=== PATIENT | female | born 1965 | race Caucasian/White ===

== ENCOUNTER 2017-02-25 22:56 | Observation (INO) | payer OTHER ==
[2017-02-25] MEDS ORDERED: RX INFO: IV CONTRAST WAS GIVEN 1 EACH MISC MISCELLANE PRN (23:14)
[2017-02-25 23:20] LABS: Glucose,Whole Blood 119 mg/dL (75-99)
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
[2017-02-25 23:32] LABS: Basophils # (A) 0.1 k/uL (0-0.2); Basophils % (A) 1 %; CHCM 34.2; Eosinophils # (A) 0.1 k/uL (0-0.7); Eosinophils % (A) 1 %; HCT 39.9 % (34.0-46.0); HDW 2.99; HGB 13.8 gm/dL (11.4-16.0); Luc # (Auto) 0.18; Luc % (Auto) 2; Lymphocytes # (A) 1.9 k/uL (1.0-4.8); Lymphocytes % (A) 16 %; MCH 32.4 pg (25.0-35.0); MCHC 34.6 g/dL (31.0-37.0); MCV 93.8 fL (80.0-100.0); Mean Platelet Volume 8.1; Monocytes # (A) 0.5 k/uL (0-1.0); Monocytes % (A) 4 %; Neutrophils # (A) 8.9 k/uL (1.3-7.7); Neutrophils % (A) 77 %; RBC 4.26 m/uL (3.80-5.40); RDW 13.2 % (11.5-15.5); WBC 11.6 k/uL (3.8-10.6); WBC (Perox) 11.46
[2017-02-25 23:38] LABS: Partial Thromboplastin Time 28.3 sec (22.0-30.0); Prothrombin Time 10.3 sec (9.0-12.0)
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
--- NOTE | 2017-02-25 23:55 | XR ---
EXAM: XR Left Tibia and Fibula, 2 Views CLINICAL HISTORY: Pain TECHNIQUE: Frontal and lateral views of the left tibia and fibula. COMPARISON: No relevant prior studies available. FINDINGS: Bones/joints: Unremarkable. No acute fracture. No dislocation. Soft tissues: Unremarkable. No radiopaque foreign body. IMPRESSION: Normal left tibia and fibula x-rays.
--- NOTE | 2017-02-25 23:56 | XR ---
EXAM: XR Pelvis, 1 or 2 Views CLINICAL HISTORY: Trauma TECHNIQUE: Frontal view of the pelvis. COMPARISON: No relevant prior studies available. FINDINGS: Bones/joints: Unremarkable. No acute fracture. No dislocation. Soft tissues: Punctate calcifications within the left hemipelvis, likely phleboliths. IMPRESSION: No acute findings.
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
--- NOTE | 2017-02-26 00:12 | CT ---
EXAM: CT Chest With Intravenous Contrast CLINICAL HISTORY: Reason: trauma TECHNIQUE: Axial computed tomography images of the chest with intravenous contrast. CTDI is 12.00 mGy and DLP is 730.90 mGy-cm. This CT exam was performed using one or more of the following dose reduction techniques: automated exposure control, adjustment of the mA and/or kV according to patient size, and/or use of iterative reconstruction technique. COMPARISON: No relevant prior studies available. FINDINGS: Lungs: Bronchial wall thickening with prominence of the intralobular septa likely representing mild pulmonary edema versus an inflammatory or infectious process. Pleural space: Unremarkable. No pneumothorax. No significant effusion. Heart: Unremarkable. No cardiomegaly. No significant pericardial effusion. Bones/joints: Unremarkable. No acute fracture. No dislocation. Soft tissues: Unremarkable. Vasculature: Unremarkable. No thoracic aortic aneurysm. Lymph nodes: Unremarkable. IMPRESSION: Bronchial wall thickening with prominence of the intralobular septa likely representing mild pulmonary edema versus an inflammatory or infectious process. EXAM: CT Abdomen and Pelvis With Intravenous Contrast CLINICAL HISTORY: Reason: trauma TECHNIQUE: Axial computed tomography images of the abdomen and pelvis with intravenous contrast. CTDI is 12.00 mGy and DLP is 730.90 mGy-cm. This CT exam was performed using one or more of the following dose reduction techniques: automated exposure control, adjustment of the mA and/or kV according to patient size, and/or use of iterative reconstruction technique. COMPARISON: No relevant prior studies available. FINDINGS: Lower thorax: No acute findings. ABDOMEN: Liver: Unremarkable. Gallbladder and bile ducts: Unremarkable. Pancreas: Unremarkable. Spleen: Unremarkable. Adrenals: Unremarkable. Kidneys and ureters: Unremarkable. Stomach and bowel: Unremarkable. Appendix: No findings to suggest acute appendicitis. PELVIS: Bladder: Unremarkable. Reproductive: Unremarkable as visualized. ABDOMEN and PELVIS: Intraperitoneal space: Unremarkable. Bones/joints: No acute fracture. No dislocation. Soft tissues: Unremarkable. Vasculature: Vascular calcifications. Moderate narrowing of the takeoff of the celiac artery. Lymph nodes: Unremarkable. IMPRESSION: No acute findings.
[2017-02-26 00:41] LABS: ALT 32 U/L (9-52); AST 19 U/L (14-36); Alcohol <10 mg/dL; Alkaline Phosphatase 121 U/L (38-126); Amylase 47 U/L (30-110); Anion Gap 11 mmol/L; Blood Urea Nitrogen 7 mg/dL (7-17); Calcium 9.2 mg/dL (8.4-10.2); Carbon Dioxide 24 mmol/L (22-30); Chloride 101 mmol/L (98-107); Glucose 99 mg/dL (74-99); Non-African American GFR(MDRD) >60 (>60 ml/min/1.73 sqM); Potassium 3.8 mmol/L (3.5-5.1); Sodium 136 mmol/L (137-145); Total Bilirubin 0.3 mg/dL (0.2-1.3)
[2017-02-26 00:54] LABS: Creatine Kinase 56 U/L (30-135)
[2017-02-26 01:05] LABS: Creatine Kinase MB 0.8 ng/mL (0.0-2.4); Troponin I <0.012 ng/mL (0.000-0.034)
[2017-02-26] MEDS ORDERED: NALOXONE 0.4 MG/ML 1 ML VIAL IV PRN (01:05)
[2017-02-26] MEDS ORDERED: ONDANSETRON 4 MG/2 ML VIAL IVP PRN (01:05)
[2017-02-26 01:07] LABS: Appearance,Urine Clear (Clear)
[2017-02-26 01:08] LABS: Bilirubin,Urine Negative (Negative); Glucose,Urine (UA) Negative (Negative); Ketones,Urine Negative (Negative); Nitrite,Urine Negative (Negative); Protein,Urine Negative (Negative); Specific Gravity,Urine 1.015 (1.001-1.035); Urobilinogen,Urine <2.0 mg/dL (<2.0)
[2017-02-26 01:09] LABS: Leukocyte Esterase,Urine Negative (Negative); UA Billing (MACRO vs. MICRO) CHEM
[2017-02-26] MEDS: SODIUM CHLORIDE 0.9% 1,000 ML IV SCH ×2 (02:21→19:13)
[2017-02-26 07:37] VITALS: RESP 16
[2017-02-26] MEDS ORDERED: FAMOTIDINE 20 MG TAB PO SCH (09:00)
[2017-02-26] MEDS ORDERED: ENOXAPARIN 40 MG/0.4 ML SYRINGE SQ SCH (15:00)
[2017-02-26] MEDS ORDERED: VENLAFAXINE HCL ER 75 MG CAP PO SCH (15:00)
[2017-02-26 15:30] VITALS: BP 118/71; PULSE 82; TEMP 97.2
[2017-02-26] MEDS ORDERED: PREGABALIN 75 MG CAP PO SCH (16:00)
[2017-02-26] MEDS ORDERED: IPRATROPIUM 0.5 MG/2.5 ML NEBU INHALATION SCH (16:00)
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
[2017-02-26] MEDS: METHADONE 5 MG TAB PO SCH ×2 (19:12→19:13)
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
[2017-02-27] MEDS ORDERED: ENOXAPARIN 40 MG/0.4 ML SYRINGE SQ SCH (09:00)
[2017-02-27] MEDS ORDERED: ESCITALOPRAM 20 MG TAB PO SCH (09:00)
== END 2017-02-26 19:20 | disposition home or self-care (01) ==
LOC: EC 22:56 → 3OBS 02-26 01:06
PROVIDERS: ADMIT Hospitalist; ATTEND Hospitalist
DX: G92 Toxic encephalopathy (principal); J44.9 Chronic obstructive pulmonary disease, unspecified; F17.210 Nicotine dependence, cigarettes, uncomplicated; F51.04 Psychophysiologic insomnia; M17.0 Bilateral primary osteoarthritis of knee; M19.032 Primary osteoarthritis, left wrist; M19.042 Primary osteoarthritis, left hand; M19.041 Primary osteoarthritis, right hand; M19.91 Primary osteoarthritis, unspecified site; I10 Essential (primary) hypertension; F41.9 Anxiety disorder, unspecified; F19.10 Other psychoactive substance abuse, uncomplicated; Z79.899 Other long term (current) drug therapy; Z88.6 Allergy status to analgesic agent; Z82.49 Family history of ischemic heart disease and other diseases of the circulatory system; Z80.1 Family history of malignant neoplasm of trachea, bronchus and lung; V47.0XXA Car driver injured in collision with fixed or stationary object in nontraffic accident, initial encounter; Y92.411 Interstate highway as the place of occurrence of the external cause
CPT/HCPCS: 36415; 93005; 86900; 86901; 80053; 82150; 82550; 82553; 83690; 84484; 85025; 85610; 85730; 86850; 81003; 80306; 80320; 71010; 72170; 73590; 72125; 70450; 71260; 74177; 99291; G0378; Q9967

== ENCOUNTER 2017-03-28 17:41 | Inpatient (IN) | payer OTHER ==
[2017-03-28] MEDS ORDERED: SODIUM CHLORIDE 0.9% 500 ML IV STA (18:08)
[2017-03-28] MEDS ORDERED: THIAMINE 100 MG/ML 2 ML VIAL IVP STA (18:09)
--- NOTE | 2017-03-28 18:14 | ED ---
Neuro HPI - General Chief Complaint: Neuro Symptoms/Deficit Stated Complaint: alter mental status Time Seen by Provider: 03/28/17 18:00 Source: patient Mode of arrival: wheelchair Limitations: altered mental status - History of Present Illness Is the patient presenting with stroke symptoms?: No Initial Comments: 51-year-old female presents with deteriorating medical condition over the last 3 -4 days. Patient has a history of alcoholism with chronic pain on methadone and is been on alprazolam for years. She had a DUI, went to court on Thursday 4 days ago and was ordered to stop all of her pain medication Xanax and alcohol. She will go to penitent[facility] for year. She has been becoming more confused over the last 4 days. And now will not speak. Has not been eating. No nausea or vomiting. Has a history of chronic neuropathic pain in the right leg. - Related Data Home Medications: Home Medications Medication Instructions Recorded Confirmed Albuterol Sulfate [Ventolin HFA] 1 - 2 puff INHALATION RT-Q4H PRN 02/26/1703/28 Escitalopram [Lexapro] 20 mg PO DAILY 02/26/17 03/28/17 Ipratropium [place] [Atrovent Hfa] 2 puff INHALATION RT-QID 02/26/17 03/28/17 Methadone HCl 5 mg PO QID 02/26/17 03/28/17 Pregabalin [Lyrica] 150 mg PO TID 02/26/17 03/28/17 Venlafaxine HCl ER [Effexor XR] 75 mg PO DAILY 02/26/17 03/28/17 ALPRAZolam [Xanax] 2 mg PO TID PRN 03/28/17 03/28/17 Fenofibrate [Lofibra] 160 mg PO DAILY 03/28/17 03/28/17 Loratadine [Claritin] 10 mg PO DAILY 03/28/17 03/28/17 Temazepam [Restoril] 15 mg PO HS 03/28/17 03/28/17 Allergies/Adverse Reactions: Allergies Allergy/AdvReac Type Severity Reaction Status Date / Time aspirin Allergy Unknown Verified 03/28/17 18:28 Review of Systems ROS Statement: Those systems with pertinent positive or pertinent negative responses have been documented in the HPI. ROS Other: All systems not noted in ROS Statement are negative. Constitutional: Denies: fever, chills Eyes: Denies: eye discharge Respiratory: Denies: cough Cardiovascular: Denies: chest pain Gastrointestinal: Denies: abdominal pain, nausea, vomiting, diarrhea General Exam Limitations: altered mental status General appearance: alert, in no apparent distress Head exam: Present: atraumatic Eye exam: Present: PERRL, EOMI. Absent: scleral icterus ENT exam: Present: normal oropharynx, mucous membranes moist, TM's normal bilaterally Neck exam: Present: normal inspection Respiratory exam: Present: normal lung sounds bilaterally Cardiovascular Exam: Present: regular rate, normal heart sounds GI/Abdominal exam: Present: soft, normal bowel sounds. Absent: distended Neurological exam: Present: CN II-XII intact, other (Reflexes mildly hyper, noncommunicative can nod yes or no. Has trouble raising her arms. There does not her to be laterality). Absent: oriented X3, motor sensory deficit Psychiatric exam: Present: flat affect. Absent: agitated Skin exam: Present: warm, dry Stroke MDM - Lab Data Result diagrams: 03/28/17 18:18 03/28/17 18:18 Lab Results 03/28/17 03/28/17 03/28/17 Range/Units 18:18 18:18 18:18 WBC 12.5 H (3.8-10.6) k/uL RBC 4.74 (3.80-5.40) m/uL Hgb 14.6 (11.4-16.0) gm/dL Hct 42.0 (34.0-46.0) % MCV 88.5 D (80.0-100.0) fL MCH 30.7 (25.0-35.0) pg MCHC 34.7 (31.0-37.0) g/dL RDW 12.8 (11.5-15.5) % Plt Count 375 (150-450) k/uL Neutrophils % 75 % Lymphocytes % 16 % Monocytes % 5 % Eosinophils % 0 % Basophils % 0 % Neutrophils # 9.3 H (1.3-7.7) k/uL Lymphocytes # 2.0 (1.0-4.8) k/uL Monocytes # 0.7 (0-1.0) k/uL Eosinophils # 0.0 (0-0.7) k/uL Basophils # 0.0 (0-0.2) k/uL PT (9.0-12.0) sec INR (<1.2) APTT (22.0-30.0) sec Sodium 150 H (137-145) mmol/L Potassium 3.3 L (3.5-5.1) mmol/L Chloride 112 H (98-107) mmol/L Carbon Dioxide 21 L (22-30) mmol/L Anion Gap 17 mmol/L BUN 20 H (7-17) mg/dL Creatinine 0.64 (0.52-1.04) mg/dL Est GFR (MDRD) Af Amer >60 (>60 ml/min/1.73 sqM) Est GFR (MDRD) Non-Af >60 (>60 ml/min/1.73 sqM) Glucose 117 H (74-99) mg/dL Calcium 10.3 H (8.4-10.2) mg/dL Total Bilirubin 0.5 (0.2-1.3) mg/dL AST 18 (14-36) U/L ALT 26 (9-52) U/L Alkaline Phosphatase 111 (38-126) U/L Total Creatine Kinase 245 H (30-135) U/L CK-MB (CK-2) 0.3 (0.0-2.4) ng/mL CK-MB (CK-2) Rel Index 0.1 Troponin I 0.015 (0.000-0.034) ng/mL Total Protein 8.1 (6.3-8.2) g/dL Albumin 4.9 (3.5-5.0) g/dL Urine Color Urine Appearance (Clear) Urine pH (5.0-8.0) Ur Specific [place] (1.001-1.035) Urine Protein (Negative) Urine Glucose (UA) (Negative) Urine Ketones (Negative) Urine Blood (Negative) Urine Nitrite (Negative) Urine Bilirubin (Negative) Urine Urobilinogen (<2.0) mg/dL Ur Leukocyte Esterase (Negative) Urine WBC (0-5) /hpf Urine Mucus (None) /hpf Urine Opiates Screen (NotDetected) Ur Oxycodone Screen (NotDetected) Urine Methadone Screen (NotDetected) Ur Propoxyphene Screen (NotDetected) Ur Barbiturates Screen (NotDetected) U Tricyclic Antidepress (NotDetected) Ur Phencyclidine Scrn (NotDetected) Ur Amphetamines Screen (NotDetected) U Methamphetamines Scrn (NotDetected) U Benzodiazepines Scrn (NotDetected) Urine Cocaine Screen (NotDetected) U Marijuana (THC) Screen (NotDetected) 03/28/17 03/28/17 Range/Units 18:18 18:30 WBC (3.8-10.6) k/uL RBC (3.80-5.40) m/uL Hgb (11.4-16.0) gm/dL Hct (34.0-46.0) % MCV (80.0-100.0) fL MCH (25.0-35.0) pg MCHC (31.0-37.0) g/dL RDW (11.5-15.5) % Plt Count (150-450) k/uL Neutrophils % % Lymphocytes % % Monocytes % % Eosinophils % % Basophils % % Neutrophils # (1.3-7.7) k/uL Lymphocytes # (1.0-4.8) k/uL Monocytes # (0-1.0) k/uL Eosinophils # (0-0.7) k/uL Basophils # (0-0.2) k/uL PT 12.3 H (9.0-12.0) sec INR 1.2 H (<1.2) APTT 25.0 (22.0-30.0) sec Sodium (137-145) mmol/L Potassium (3.5-5.1) mmol/L Chloride (98-107) mmol/L Carbon Dioxide (22-30) mmol/L Anion Gap mmol/L BUN (7-17) mg/dL Creatinine (0.52-1.04) mg/dL Est GFR (MDRD) Af Amer (>60 ml/min/1.73 sqM) Est GFR (MDRD) Non-Af (>60 ml/min/1.73 sqM) Glucose (74-99) mg/dL Calcium (8.4-10.2) mg/dL Total Bilirubin (0.2-1.3) mg/dL AST (14-36) U/L ALT (9-52) U/L Alkaline Phosphatase (38-126) U/L Total Creatine Kinase (30-135) U/L CK-MB (CK-2) (0.0-2.4) ng/mL CK-MB (CK-2) Rel Index Troponin I (0.000-0.034) ng/mL Total Protein (6.3-8.2) g/dL Albumin (3.5-5.0) g/dL Urine Color Yellow Urine Appearance Clear (Clear) Urine pH 6.0 (5.0-8.0) Ur Specific [place] 1.024 (1.001-1.035) Urine Protein 1+ H (Negative) Urine Glucose (UA) Negative (Negative) Urine Ketones 1+ H (Negative) Urine Blood Negative (Negative) Urine Nitrite Negative (Negative) Urine Bilirubin 1+ H (Negative) Urine Urobilinogen 2.0 (<2.0) mg/dL Ur Leukocyte Esterase Negative (Negative) Urine WBC 1 (0-5) /hpf Urine Mucus Rare H (None) /hpf Urine Opiates Screen Not Detected (NotDetected) Ur Oxycodone Screen Not Detected (NotDetected) Urine Methadone Screen Detected H (NotDetected) Ur Propoxyphene Screen Not Detected (NotDetected) Ur Barbiturates Screen Not Detected (NotDetected) U Tricyclic Antidepress Not Detected (NotDetected) Ur Phencyclidine Scrn Not Detected (NotDetected) Ur Amphetamines Screen Not Detected (NotDetected) U Methamphetamines Scrn Not Detected (NotDetected) U Benzodiazepines Scrn Detected H (NotDetected) Urine Cocaine Screen Not Detected (NotDetected) U Marijuana (THC) Screen Detected H (NotDetected) - EKG Data -: EKG Interpreted by Me 03/28/17 18:24 EKG 03/28/2017 1813 ventricular rate 70 bpm, MO interval 112 ms, QRS duration 68 ms, QT interval 396 ms normal sinus rhythm with sinus arrhythmia and nonspecific ST abnormality Past Medical History Past Medical History: Unable to Obtain Additional Past Medical History / Comment(s): Bronchitis, UTI, arthritis multiple joints, back pain, current L breast wound with I&D and pt states recently reopened. History of Any Multi-Drug Resistant Organisms: Unobtainable Past Surgical History: Hysterectomy Additional Past Surgical History / Comment(s): L breast I&D Past Anesthesia/Blood Transfusion Reactions: No Reported Reaction, Motion Sickness Past Psychological History: Unable to Obtain Smoking Status: Current every day smoker Past Alcohol Use History: Daily Past Drug Use History: Prescription Drug Abuse - Past Family History Father Family Medical History: Congestive Heart Failure (CHF) Additional Family Medical History / Comment(s): Father of CHF at the age of 75 yrs. Mother Family Medical History: Cancer Additional Family Medical History / Comment(s): Mother of lung cancer at the age of 68yrs. She was a heavy smoker. Course Vital Signs 03/28/17 03/28/17 03/28/17 17:50 19:00 20:03 Temperature 99.3 F 98.5 F Pulse Rate 85 97 80 Respiratory 18 18 18 Rate Blood Pressure 146/80 163/90 169/88 O2 Sat by Pulse 94 L 97 98 Oximetry - Reevaluation(s) Reevaluation #1: 03/28/17 20:34 Spoke with him the on-call physician Dr. Wilkins patient will be admitted to regular medical floor mild hyponatremia delirium secondary to drug and alcohol withdrawal presently not shaky. She is now 4 days into with no sign of the shakiness or DTs. Disposition Clinical Impression: Delirium, Drug withdrawal, Hypernatremia Disposition: ADMITTED IP TO THIS HOSP Condition: Fair Referrals: Nonstaff,Physician [Primary Care Provider] - 1-2 days Time of Disposition: 20:35
[2017-03-28 18:55] LABS: Appearance,Urine Clear (Clear); Bilirubin,Urine 1+ (Negative); Glucose,Urine (UA) Negative (Negative); Ketones,Urine 1+ (Negative); Leukocyte Esterase,Urine Negative (Negative); Mucus,Urine Rare /hpf; Nitrite,Urine Negative (Negative); Particle Count 1706; Protein,Urine 1+ (Negative); Specific Gravity,Urine 1.024 (1.001-1.035); UA Billing (MACRO vs. MICRO) MICRO; WBC,Urine 1 /hpf (0-5)
--- NOTE | 2017-03-28 18:55 | CT ---
EXAMINATION TYPE: CT brain wo con DATE OF EXAM: 03/28/2017 HISTORY: Patient poor historian altered mental status. CT DLP: 1746.2 mGycm. Automated Exposure Control for Dose Reduction was Utilized. TECHNIQUE: CT scan of the head is performed without contrast. COMPARISON: CT brain February 25, 2017. FINDINGS: Repeat imaging due to patient motion is performed. There is no acute intracranial hemorrh age or midline shift identified. There is diffuse ventricular and sulcal prominence consistent with d iffuse age-related cerebral atrophy. There is low-attenuation in the periventricular white matter co nsistent with chronic small vessel ischemic change. The globes are intact and the visualized sinuses are clear. IMPRESSION: No acute intracranial hemorrhage or midline shift. There is mild to minimal diffuse age -related cerebral atrophy and chronic small vessel ischemic change redemonstrated without significant change from prior study seen.
[2017-03-28 18:56] LABS: Basophils % (A) 0 %; CH 31.2; CHCM 35.4; Eosinophils % (A) 0 %; HDW 2.95; HGB 14.6 gm/dL (11.4-16.0); Luc # (Auto) 0.45; Luc % (Auto) 4; Lymphocytes % (A) 16 %; MCH 30.7 pg (25.0-35.0); MCHC 34.7 g/dL (31.0-37.0); Mean Platelet Volume 7.3; Monocytes # (A) 0.7 k/uL (0-1.0); Monocytes % (A) 5 %; Neutrophils # (A) 9.3 k/uL (1.3-7.7); Neutrophils % (A) 75 %; RBC 4.74 m/uL (3.80-5.40); RDW 12.8 % (11.5-15.5); WBC 12.5 k/uL (3.8-10.6); WBC (Perox) 12.36
[2017-03-28 18:57] LABS: MCV 88.5 fL (80.0-100.0)
--- NOTE | 2017-03-28 18:57 | XR ---
EXAMINATION TYPE: XR chest 1V portable DATE OF EXAM: 03/28/2017 COMPARISON: Chest x-ray February 25, 2017 HISTORY: Altered mental status and weakness. TECHNIQUE: Single AP portable frontal supine view of the chest is obtained. FINDINGS: There is no focal air space opacity, pleural effusion, or pneumothorax seen. The cardiac silhouette size is stable and upper limits of normal. The osseous structures are intact. IMPRESSION: No acute process. No significant change from prior.
[2017-03-28 18:59] LABS: INR 1.2 (<1.2); Prothrombin Time 12.3 sec (9.0-12.0)
[2017-03-28 19:05] LABS: ALT 26 U/L (9-52); AST 18 U/L (14-36); Alkaline Phosphatase 111 U/L (38-126); Anion Gap 17 mmol/L; Blood Urea Nitrogen 20 mg/dL (7-17); Calcium 10.3 mg/dL (8.4-10.2); Carbon Dioxide 21 mmol/L (22-30); Chloride 112 mmol/L (98-107); Glucose 117 mg/dL (74-99); Non-African American GFR(MDRD) >60 (>60 ml/min/1.73 sqM); Potassium 3.3 mmol/L (3.5-5.1); Sodium 150 mmol/L (137-145); Total Bilirubin 0.5 mg/dL (0.2-1.3); Total Protein 8.1 g/dL (6.3-8.2)
[2017-03-28 19:37] LABS: Creatine Kinase MB 0.3 ng/mL (0.0-2.4); Troponin I 0.015 ng/mL (0.000-0.034)
[2017-03-28] MEDS ORDERED: NALOXONE 0.4 MG/ML 1 ML VIAL IV PRN (20:35)
[2017-03-28] MEDS: DEXTROSE 5%-0.45% NACL 1,000 ML IV SCH (21:21)
[2017-03-28] MEDS: POTASSIUM CHLORIDE 10 MEQ, LIDOCAINE 2% INJ 10 MG in SODIUM CHLORIDE 0.9% 100 ML IVPB SCH (22:24)
[2017-03-28] MEDS: ALBUTEROL NEBULIZED 2.5 MG/3 ML INHALATION SCH (23:39)
[2017-03-29] MEDS: POTASSIUM CHLORIDE 10 MEQ, LIDOCAINE 2% INJ 10 MG in SODIUM CHLORIDE 0.9% 100 ML IVPB SCH (00:47)
[2017-03-29] MEDS: ALBUTEROL NEBULIZED 2.5 MG/3 ML INHALATION SCH ×6 (03:16→22:40)
[2017-03-29] MEDS ORDERED: ACETAMINOPHEN IV (For NPO) 1,000 MG in EMPTY BAG 1 BAG IVPB STA ×2 (06:35→13:55)
[2017-03-29] MEDS: THIAMINE 100 MG/ML 2 ML VIAL IVP SCH (07:28)
[2017-03-29 07:54] LABS: Basophils % (A) 0 %; CH 30.8; CHCM 34.2; Eosinophils % (A) 0 %; HCT 38.5 % (34.0-46.0); HDW 2.86; HGB 13.6 gm/dL (11.4-16.0); Luc # (Auto) 0.37; Luc % (Auto) 4; Lymphocytes # (A) 1.6 k/uL (1.0-4.8); Lymphocytes % (A) 15 %; MCHC 35.4 g/dL (31.0-37.0); MCV 90.4 fL (80.0-100.0); Mean Platelet Volume 7.1; Monocytes # (A) 0.6 k/uL (0-1.0); Monocytes % (A) 5 %; Neutrophils % (A) 76 %; RBC 4.26 m/uL (3.80-5.40); RDW 12.7 % (11.5-15.5); WBC 10.5 k/uL (3.8-10.6); WBC (Perox) 11.24
[2017-03-29 08:06] LABS: Anion Gap 12 mmol/L; Blood Urea Nitrogen 16 mg/dL (7-17); Calcium 9.2 mg/dL (8.4-10.2); Carbon Dioxide 21 mmol/L (22-30); Chloride 117 mmol/L (98-107); Glucose 128 mg/dL (74-99); Non-African American GFR(MDRD) >60 (>60 ml/min/1.73 sqM); Sodium 150 mmol/L (137-145)
[2017-03-29] MEDS ORDERED: Potassium Replacement Protocol 1 EACH MISC MISCELLANE PRN ×2 (08:14→16:23)
[2017-03-29] MEDS ORDERED: PANTOPRAZOLE 40 MG/10 ML VIAL IV SCH (09:00)
[2017-03-29] MEDS: POTASSIUM CHLORIDE 10 MEQ, LIDOCAINE 2% INJ 10 MG in SODIUM CHLORIDE 0.9% 100 ML IV SCH ×5 (09:05→21:23)
[2017-03-29] MEDS ORDERED: IOHEXOL 350 MG/ML 25 ML BOTTLE (ORAL USE) PO PRN (11:02)
[2017-03-29] MEDS: DEXTROSE 5%-0.45% NACL 1,000 ML IV SCH ×2 (12:17→18:27)
--- NOTE | 2017-03-29 12:18 | CT ---
EXAMINATION TYPE: CT abdomen pelvis wo con DATE OF EXAM: 03/29/2017 COMPARISON: 02/25/2017 HISTORY: Fever CT DLP: 327.8 mGycm Automated exposure control for dose reduction was used. TECHNIQUE: Helical acquisition of images was performed from the lung bases through the pelvis. FINDINGS: There is infiltrate and atelectasis at the posterior lung bases. There are small pleural effusions. Liver shows no focal defect. Spleen appears normal. There is no evidence of pancreatic mass. There is no adrenal mass. Kidneys show no hydronephrosis. Ureters are not dilated. Kidneys have kenji l size and contour. There is no retroperitoneal adenopathy. Gallbladder appears normal. Bladder diste nds smoothly. There is no ascites. I see no intestinal wall thickening. There are no dilated loops. I see no bony destructive process. There is minimal stranding around the left kidney compared to the right. Exam is limited by lack of contrast. IMPRESSION: THERE ARE NEW BASILAR PULMONARY INFILTRATES AND ATELECTASIS AND MINIMAL PLEURAL FLUID COMPARED TO OLD EXAM. MINIMAL STRANDING AROUND THE LEFT KIDNEY APPEARS NEW COMPARED TO OLD EXAM AND COULD RELATE TO PYELONE PHRITIS. NO EVIDENCE OF INTRA-ABDOMINAL ABSCESS.
--- NOTE | 2017-03-29 14:26 | P.HPIM ---
History of Present Illness 51-year-old female presents with deteriorating medical condition over the last 3 -4 days. Patient has a history of alcoholism with chronic pain on methadone and is been on alprazolam for years. She had a DUI, went to court on Thursday 4 days ago and was ordered to stop all of her pain medication Xanax and alcohol. She will go to intermediate for year. She has been becoming more confused over the last 4 days. And now will not speak. Has not been eating. No nausea or vomiting. Has a history of chronic neuropathic pain in the right leg. I'm unable to get much of the history from the patient and family members are not available patient only answers with head nodding. Patient is found to have fever. Source of infection is not clear patient UA is not impressive. Patient' s chest x-ray did not show pneumonia because of which are pending a CT of the abdomen which showed some suspicious pyelonephritis and was standing on the left kidney. Patient was given Rocephin yesterday. Patient had fevers as today and patient did have fevers today as well. I consulted infectious disease. Patient will be started back on Rocephin. Patient is not packing mostly because of severe depression I believe. Patient was abusing her medications apparently at home. But patient is awake. When asked about abdominal pain she did say that she does have abdominal pain with head nodding, when asked about chest pain she nodded yes for that as well. She was hyponatremic due to dehydration for which patient is on D5 half-normal saline will repeat sodium again later in the day if it remains high patient will be switched to D5 water. Review of Systems Unable to obtain due to above-mentioned reasons Past Medical History Past Medical History: Unable to Obtain Additional Past Medical History / Comment(s): Bronchitis, UTI, arthritis multiple joints, back pain, current L breast wound with I&D and pt states recently reopened. History of Any Multi-Drug Resistant Organisms: Unobtainable Past Surgical History: Hysterectomy Additional Past Surgical History / Comment(s): L breast I&D Past Anesthesia/Blood Transfusion Reactions: No Reported Reaction, Motion Sickness Past Psychological History: Unable to Obtain Smoking Status: Current every day smoker Past Alcohol Use History: Daily Past Drug Use History: Prescription Drug Abuse - Past Family History Father Family Medical History: Congestive Heart Failure (CHF) Additional Family Medical History / Comment(s): Father of CHF at the age of 75 yrs. Mother Family Medical History: Cancer Additional Family Medical History / Comment(s): Mother of lung cancer at the age of 68yrs. She was a heavy smoker. Medications and Allergies Home Medications Medication Instructions Recorded Confirmed Type Albuterol Sulfate [Ventolin HFA] 1 - 2 puff INHALATION RT-Q4H PRN 02/26/1703/28 History Escitalopram [Lexapro] 20 mg PO DAILY 02/26/17 03/28/17 History Ipratropium [place] [Atrovent Hfa] 2 puff INHALATION RT-QID 02/26/17 03/28/17 History Methadone HCl 5 mg PO QID 02/26/17 03/28/17 History Pregabalin [Lyrica] 150 mg PO TID 02/26/17 03/28/17 History Venlafaxine HCl ER [Effexor XR] 75 mg PO DAILY 02/26/17 03/28/17 History ALPRAZolam [Xanax] 2 mg PO TID PRN 03/28/17 03/28/17 History Fenofibrate [Lofibra] 160 mg PO DAILY 03/28/17 03/28/17 History Loratadine [Claritin] 10 mg PO DAILY 03/28/17 03/28/17 History Temazepam [Restoril] 15 mg PO HS 03/28/17 03/28/17 History Allergies Allergy/AdvReac Type Severity Reaction Status Date / Time aspirin Allergy Unknown Verified 03/28/17 18:28 Physical Exam Vitals: Vital Signs Temp Pulse Pulse Resp BP BP Pulse Ox 03/29/17 13:53 101.6 F H 03/29/17 13:07 80 03/29/17 12:55 80 03/29/17 10:53 99.2 F 03/29/17 09:48 80 03/29/17 09:28 80 03/29/17 08:00 91 16 03/29/17 07:57 98.9 F 91 16 157/83 91 L 03/29/17 07:33 100.2 F H 03/29/17 06:50 103.4 F H 03/28/17 23:42 78 16 03/28/17 22:44 101.1 F H 78 16 136/89 93 L 03/28/17 21:18 98.7 F 80 18 173/86 97 03/28/17 20:03 98.5 F 80 18 169/88 98 03/28/17 19:00 97 18 163/90 97 03/28/17 17:50 99.3 F 85 18 146/80 94 L Intake and Output 03/28/17 03/29/17 03/29/17 22:59 06:59 14:59 Output Total 300 Balance -300 Output: Urine 300 Straight 300 Other: Voiding Method Bedpan Bedpan Weight 58.967 kg 58.967 kg PHYSICAL EXAMINATION: GENERAL: The patient is alert disorientation patient is mostly nonverbal MIPS to be depressed, not in any acute distress. Well developed, well nourished. HEENT: Pupils are round and equally reacting to light. EOMI. No scleral icterus. No conjunctival pallor. Normocephalic, atraumatic. No pharyngeal erythema. No thyromegaly. CARDIOVASCULAR: S1 and S2 present. No murmurs, rubs, or gallops. PULMONARY: Chest is clear to auscultation, no wheezing or crackles. ABDOMEN: Soft, nontender, nondistended, normoactive bowel sounds. No palpable organomegaly. MUSCULOSKELETAL: No joint swelling or deformity. EXTREMITIES: No cyanosis, clubbing, or pedal edema. NEUROLOGICAL: Gross neurological examination did not reveal any focal deficits. SKIN: No rashes. Results CBC & Chem 7: 03/29/17 07:35 03/29/17 13:54 Labs: Abnormal Lab Results - Last 24 Hours (Table) 03/28/17 03/28/17 03/28/17 Range/Units 18:18 18:18 18:18 WBC 12.5 H (3.8-10.6) k/uL Neutrophils # 9.3 H (1.3-7.7) k/uL PT (9.0-12.0) sec INR (<1.2) Sodium 150 H (137-145) mmol/L Potassium 3.3 L (3.5-5.1) mmol/L Chloride 112 H (98-107) mmol/L Carbon Dioxide 21 L (22-30) mmol/L BUN 20 H (7-17) mg/dL Glucose 117 H (74-99) mg/dL Calcium 10.3 H (8.4-10.2) mg/dL Total Creatine Kinase 245 H (30-135) U/L Urine Protein (Negative) Urine Ketones (Negative) Urine Bilirubin (Negative) Urine Mucus (None) /hpf Urine Methadone Screen (NotDetected) U Benzodiazepines Scrn (NotDetected) U Marijuana (THC) Screen (NotDetected) 03/28/17 03/28/17 03/29/17 Range/Units 18:18 18:30 07:35 WBC (3.8-10.6) k/uL Neutrophils # 8.0 H (1.3-7.7) k/uL PT 12.3 H (9.0-12.0) sec INR 1.2 H (<1.2) Sodium (137-145) mmol/L Potassium (3.5-5.1) mmol/L Chloride (98-107) mmol/L Carbon Dioxide (22-30) mmol/L BUN (7-17) mg/dL Glucose (74-99) mg/dL Calcium (8.4-10.2) mg/dL Total Creatine Kinase (30-135) U/L Urine Protein 1+ H (Negative) Urine Ketones 1+ H (Negative) Urine Bilirubin 1+ H (Negative) Urine Mucus Rare H (None) /hpf Urine Methadone Screen Detected H (NotDetected) U Benzodiazepines Scrn Detected H (NotDetected) U Marijuana (THC) Screen Detected H (NotDetected) 03/29/17 03/29/17 Range/Units 07:35 13:54 WBC (3.8-10.6) k/uL Neutrophils # (1.3-7.7) k/uL PT (9.0-12.0) sec INR (<1.2) Sodium 150 H (137-145) mmol/L Potassium 3.0 L* 3.3 L (3.5-5.1) mmol/L Chloride 117 H (98-107) mmol/L Carbon Dioxide 21 L (22-30) mmol/L BUN (7-17) mg/dL Glucose 128 H (74-99) mg/dL Calcium (8.4-10.2) mg/dL Total Creatine Kinase (30-135) U/L Urine Protein (Negative) Urine Ketones (Negative) Urine Bilirubin (Negative) Urine Mucus (None) /hpf Urine Methadone Screen (NotDetected) U Benzodiazepines Scrn (NotDetected) U Marijuana (THC) Screen (NotDetected) Assessment and Plan Plan: #1 sepsis: Source of sepsis is not clear may be related to pyelonephritis or urinary tract infection. Patient will be started back on ceftriaxone 2 g and infectious disease was consulted. #2 possible toxic encephalopathy from sepsis and overuse of medications. 3 hyponatremia: Hypovolemic hyponatremia expected to improve with the above- mentioned fluids. 4 polysubstance abuse in the past and present #5 severe depression: Psychiatric is be consulted as all her symptoms of presentation appears to be related to severe depression.
[2017-03-29 15:45] LABS: Hepatitis B Surface Ag Index 0.06
[2017-03-29 15:51] LABS: Hepatitis B Core IgM Index 0.05
[2017-03-29 16:02] LABS: Hepatitis C Virus IgG Ab Negative (Negative); Hepatitis C Virus IgG Index 0.02
[2017-03-29] MEDS: cefTRIAXone 2,000 MG in SODIUM CHLORIDE 0.9% 100 ML IVPB SCH (16:41)
[2017-03-29 18:10] VITALS: BMI 27.1
[2017-03-29 20:38] LABS: Appearance,Urine Clear (Clear); Bilirubin,Urine Negative (Negative); Glucose,Urine (UA) Negative (Negative); Ketones,Urine 1+ (Negative); Leukocyte Esterase,Urine Negative (Negative); Nitrite,Urine Negative (Negative); PH, Urine 5.5 (5.0-8.0); Protein,Urine Trace (Negative); Specific Gravity,Urine 1.021 (1.001-1.035); UA Billing (MACRO vs. MICRO) CHEM; Urobilinogen,Urine <2.0 mg/dL (<2.0)
[2017-03-30] MEDS: DEXTROSE 5%-0.45% NACL 1,000 ML IV SCH ×2 (05:28→07:52)
[2017-03-30 07:26] LABS: CH 30.9; CHCM 33.7; HCT 38.3 % (34.0-46.0); HDW 2.81; HGB 12.9 gm/dL (11.4-16.0); MCHC 33.6 g/dL (31.0-37.0); MCV 92.3 fL (80.0-100.0); Mean Platelet Volume 7.4; RBC 4.16 m/uL (3.80-5.40); WBC 12.3 k/uL (3.8-10.6)
[2017-03-30] MEDS: cefTRIAXone 2,000 MG in SODIUM CHLORIDE 0.9% 100 ML IVPB SCH (07:44)
[2017-03-30 07:49] LABS: ALT 29 U/L (9-52); AST 22 U/L (14-36); Alkaline Phosphatase 91 U/L (38-126); Anion Gap 12 mmol/L; Blood Urea Nitrogen 8 mg/dL (7-17); Calcium 9.2 mg/dL (8.4-10.2); Carbon Dioxide 22 mmol/L (22-30); Chloride 113 mmol/L (98-107); Glucose 136 mg/dL (74-99); Non-African American GFR(MDRD) >60 (>60 ml/min/1.73 sqM); Potassium 3.1 mmol/L (3.5-5.1); Sodium 147 mmol/L (137-145); Total Bilirubin 0.4 mg/dL (0.2-1.3); Total Protein 6.4 g/dL (6.3-8.2)
[2017-03-30] MEDS: THIAMINE 100 MG/ML 2 ML VIAL IVP SCH (07:51)
[2017-03-30] MEDS: PANTOPRAZOLE 40 MG TABLET PO SCH (07:52)
[2017-03-30] MEDS: POTASSIUM CHLORIDE 10 MEQ, LIDOCAINE 2% INJ 10 MG in SODIUM CHLORIDE 0.9% 100 ML IVPB SCH ×4 (09:02→22:56)
--- NOTE | 2017-03-30 10:14 | CONS ---
DATE OF SERVICE: 03/29/2017 REASON FOR CONSULTATION: Fever. HISTORY OF PRESENT ILLNESS: The patient is a 51-year-old female with past medical history significant for chronic back pain and anxiety. The patient has been on methadone and Xanax for a long time. Apparently the patient did have a DUI. The patient went to court on and the patient has been told to stop her pain medication and Xanax or she will go to long-term. For the last few days the patient seems to be more confused and the patient will not speak, has not been eating, no history of nausea, no vomiting. For these symptoms, the patient was brought into the ER by her boyfriend for further evaluation where the patient has been evaluated by the ER physician. Chest x-ray has been done which was reported as negative for any acute process. CT of the brain was negative for any bleed. Urine was slightly positive. CT of abdomen and pelvis did show possible perinephric stranding on the left side. She was started on Rocephin. I was asked to see the patient for further recommendations. The patient is awake; however, would not speak though the patient seems to be understanding the questions that were asked specifically to her and when categorically asked for any headache the patient nodded her head in the no or any nausea, no vomiting. However, the history remains to be limited as the patient will not answer any questions and would rather nod her head yes and no. REVIEW OF SYSTEMS: Could not be reliably obtained. Positive points as mentioned in HPI. PAST MEDICAL HISTORY: Significant for chronic back pain, arthritis, bronchitis , urinary tract infection. PAST SURGICAL HISTORY: Hysterectomy, ( ). SOCIAL HISTORY: Currently heavy smoker and drinker. ( ) FAMILY HISTORY: Father with history of congestive heart failure. Mother of lung cancer. ALLERGIES TO ASPIRIN. Medications include the patient is currently on Ventolin inhaler, Rocephin, Narcan, Protonix, vitamin B1. On examination, blood pressure is 154/79 with pulse of 93. Temperature 98.5. T -max 101.6. She is 93% on 2-L nasal cannula. General description is a middle aged female lying in bed in no distress with no tachypnea or accessory muscle of respiration use. HEENT: No pallor or scleral icterus. Oral mucous membrane is moist. NECK: Tracheal central. No thyromegaly. LUNGS: Unlabored breathing. Clear to auscultation. No wheeze or crackles. HEART: S1, S2 regular rate and rhythm. ABDOMEN: soft, no tenderness. No guarding or rigidity. EXTREMITIES: No edema feet. SKIN: No rash or mass palpable. NEUROLOGICAL: Patient is awake and alert. Orientation could not be determined as patient would not answer any questions. However, there were no signs of any neck rigidity or meningeal irritation. LABS: Hemoglobin is 13, white count 10.5. Admission white count was 12. BUN of 15. Creatinine 0.60. Urine was not significantly positive. Urine drug screen was positive for methadone, benzodiazepines, marijuana. DIAGNOSTIC IMPRESSION AND PLAN: Patient admitted to the hospital with possible sepsis where the patient did have a fever and elevated white count. Awaiting ( ); however, not a very clear focus of infection in this lady with possible drug overdose. Patient did have some perinephric stranding; however, the urine is not significantly positive. Chest x-ray report remains negative. Abdomen was soft on clinical examination in patient with no evidence of any cellulitis or joint swelling though the patient did have some mental status changes. However, the patient categorically denies any headache and no signs of meningeal irritation or neck rigidity making [employer] infection to be less likely. PLAN: 1. The patient kept on Rocephin 2 gram IV piggyback daily while awaiting for the culture to finalize. 2. If any further fever, recommend obtaining a CSF examination. 3. We will follow up on the clinical condition and culture to further adjust medication if needed. Thank you for this consultation. I will follow the patient along with you. STEVE
[2017-03-30] MEDS: ALBUTEROL NEBULIZED 2.5 MG/3 ML INHALATION PRN ×3 (11:31→20:41)
--- NOTE | 2017-03-30 11:45 | P.PN ---
Subjective 51-year-old female is admitted for fever, sepsis possible source being urinary tract infection. Patient was mostly nonverbal S today patient is starting today patient almost alert oriented times close to 3. Patient has a history of multiple drug use and there was a concern that she may be using those drugs and patient is quite depressed and the psychiatric was consulted. today denied any abdominal pain but does have some cramping sensation in the abdomen. Denied any chest pain today. REVIEW OF SYSTEMS: CARDIOVASCULAR: No chest pain, no orthopnea, no PND, no palpitations. PULMONARY: Denied any shortness of breath. No cough or hemoptysis. GASTROINTESTINAL: No diarrhea, nausea or vomiting. No abdominal pain. Normoactive bowel sounds. NEUROLOGIC: No headaches, no weakness, no numbness. Objective - Vital Signs Vital signs: Vital Signs Temp 98.7 F 03/30/17 07:00 Pulse 80 03/30/17 11:31 Resp 16 03/30/17 08:00 BP 153/85 03/30/17 07:00 Pulse Ox 97 03/30/17 11:31 Intake & Output 03/29/17 03/30/17 03/30/17 18:59 06:59 18:59 Intake Total 0 Balance 0 Weight 58.967 kg Intake: Oral 0 Other: Voiding Method Bedpan Bedpan Bedpan # Voids 3 1 1 # Bowel Movements 1 - Exam PHYSICAL EXAMINATION: GENERAL: The patient is alert and oriented x3, not in any acute distress. Well developed, well nourished. HEENT: Pupils are round and equally reacting to light. EOMI. No scleral icterus. No conjunctival pallor. Normocephalic, atraumatic. No pharyngeal erythema. No thyromegaly. CARDIOVASCULAR: S1 and S2 present. No murmurs, rubs, or gallops. PULMONARY: Chest is clear to auscultation, no wheezing or crackles. ABDOMEN: Soft, nontender, nondistended, normoactive bowel sounds. No palpable organomegaly. MUSCULOSKELETAL: No joint swelling or deformity. EXTREMITIES: No cyanosis, clubbing, or pedal edema. NEUROLOGICAL: Gross neurological examination did not reveal any focal deficits. SKIN: No rashes. - Labs CBC & Chem 7: 03/30/17 07:04 03/30/17 07:04 Labs: Abnormal Lab Results - Last 24 Hours (Table) 07/03/29/17 03/30/17 Range/Units 13:54 16:30 07:04 WBC 12.3 H (3.8-10.6) k/uL Sodium (137-145) mmol/L Potassium 3.3 L (3.5-5.1) mmol/L Chloride (98-107) mmol/L Creatinine (0.52-1.04) mg/dL Glucose (74-99) mg/dL Urine Protein Trace H (Negative) Urine Ketones 1+ H (Negative) 03/30/17 Range/Units 07:04 WBC (3.8-10.6) k/uL Sodium 147 H (137-145) mmol/L Potassium 3.1 L (3.5-5.1) mmol/L Chloride 113 H (98-107) mmol/L Creatinine 0.50 L (0.52-1.04) mg/dL Glucose 136 H (74-99) mg/dL Urine Protein (Negative) Urine Ketones (Negative) Microbiology - Last 24 Hours (Table) 03/29/17 16:30 Urine Culture - Preliminary Urine,Voided Assessment and Plan Plan: #1 sepsis: Source of sepsis is not clear may be related to pyelonephritis or urinary tract infection. Patient will be started back on ceftriaxone 2 g and patient did have improvement since yesterday. #2 possible toxic encephalopathy from sepsis and overuse of medications. Had significant improvement compared to yesterday 3 hyponatremia: Hypovolemic hyponatremia . Improved with half normal saline 4 polysubstance abuse in the past and present #5 severe depression: Psychiatric is be consulted as all her symptoms of presentation appears to be related to severe depression.
--- NOTE | 2017-03-30 16:31 | P.CN ---
Psychiatric Consult - . Consult date: 03/30/17 Consult:: 03/30/17 15:53 Identification and Reason for Consult: Patient is a 51-year-old female who was consulted for altered mental status. Patient's chart was reviewed and she was seen in her room, her partner was present who is the primary historian. History of Present Illness: Patient did not answer any of my questions and would not nod yes or no to respond to questions. Her partner was present who provided information. He states that she went to court on Thursday prior to admission for a DUI charge he was not present with her and so is not sure of the outcome. He stated she told him that the veneer jointer operator ordered her to stop all medication for 2 weeks or else she would go to halfway for 1 year. He reports that she stopped all of her medications on Thursday. He is uncertain of exactly all of the medications that she was on but states that he knows she was taking methadone for pain, Lyrica for pain, Bentyl for stomach problems and states that she has been using Xanax in unknown dosage 3 times a day and he reports that this might have recently been increased. He states that she has been taking Xanax for quite some time for stomach problems which he described as not eating and having diarrhea frequently after meals. She was also taking Restoril for sleep and he is unaware if she was prescribed and/or taking Lexapro. He reported that Thursday night she appeared as usual and on spoke with her house painting instructor and he reports had one beer. Reports the patient has been drinking heavily for over 20 years he states that a minimum a 12 pack of beer a day. He states by Thursday she was sitting in a chair all day, wasn't talking nor was she eating or drinking and only told him that she was "okay". He reports that Thursday she was in the same chair and when he returned from work in the evening she still has not moved from the chair nor eaten or drank anything and so he brought her to the hospital. She stated that she did not want to come to the hospital and he had to assist her into the car. Patient would look at me when I addressed questions to her but she would not nod her head yes or no respond verbally to any of the questions. Past Psychiatric History: Per her partner he is unaware of any prior psychiatric inpatient treatment, prior psychiatric outpatient treatment or rehab treatment. He reported her medications is being Restoril to assist with sleep, Xanax for stomach problems and he was unaware if she was taking Lexapro or not and felt that these were all being prescribed by her primary care physician. Past Medical/Surgical History: Per her partner she has a crushed nerve in her right ankle, he is unaware of any other medical problems or surgeries. He states she has had difficulty eating for many years. Current Medications: Per her partner he thought she was taking Lyrica, methadone , Bentyl, Xanax, Restoril and is uncertain if she was taking Lexapro he was unaware of any other medications. Family History: Not known Social History: Patient has lives with her current boyfriend for 2 years although they have known each other for over 20 years. He states that she lives on money from her father's estate and is not working due to her ankle injury. She has 2 children who are adults. Substance Use History: Per her partner she drinks 12 or more beers a day and has for at least the last 20 years, he is unaware of any other substance use Legal History: Patient was in court on Thursday for a DUI charge per her partner he is unaware of the outcome. Mental Status:Appearance/Attitude: Patient was lying in bed in no apparent distress and when addressed would make eye contact with me but would not respond verbally to any questions nor which she shake her head yes or no to questions Behavior: Patient was lying quietly in her bed there is no obvious psychomotor agitation, patient was not picking at the air and did not appear to be responding to any internal stimuli. Speech/Language: Patient would not respond verbally to any questions or nod yes or no to questions Thought Process: Unable to assess Thought Content: Unable to assess Suicidal/Homicidal Ideation: Unable to assess Sensorium/Cognition: Patient was alert but nonverbal with me, her partner reported that she said "I love you" to him when he left today and the nurse reported that she was able to respond to her name and knew where she was earlier this morning. Mood/Affect: Unable to assess the patient's mood her affect was blunted Insight/Judgement: Unable to assess Assessment: Patient was admitted for altered mental status which apparently began on Thursday prior to admission after per her partner she discontinued her Restoril, Xanax, methadone, Lyrica and possibly other medications which he states she reported was at the urging of the veneer jointer operator when she was in court on Thursday for a DUI charge. Since Thursday prior to admission she was sitting in a chair, not talking and was not eating or drinking. Due to her not eating, drinking or moving out of the chair or responding to him verbally he brought her to the emergency room. Patient's partner is the only source of information at this time and he reports she has a long history of alcohol use for at least 20 years, has been on Xanax for most of her life for GI problems. Patient also had a elevated temp and white count on admission, her sodium was elevated, her potassium was decreased she had ketones present in her urine. Her hepatitis screen was negative. Patient is not exhibiting any evidence of withdrawal from either benzodiazepines or alcohol at this time, patient had evidence of delirium on admission and continues to be nonverbal but at times responding to questions. Diagnosis: Delirium, due to multiple etiologies, sepsis, alcohol/benzodiazipine withdrawal, Alcohol use disorder, benzodiazepine use disorder Plan: At this time patient remains mostly nonverbal, she was not able to respond yes or no to questions and is difficult to assess whether she understood them or not, she was not cooperative with the swallow test and so remains nothing by mouth. At this time patient is not agitated and so will not begin any antipsychotic medication but will reevaluate patient tomorrow to see if her delirium continues to improve with treatment of her sepsis. As per the nurse, patient did respond to her name and was aware of her location however she remains mostly nonverbal. Would not restart any benzodiazepines due to the patient's alcohol history and long use of Xanax with per her boyfriend increasing amounts being prescribed. We'll reevaluate patient tomorrow to assess need for any medication. 03/30/17 15:54 03/30/17 16:22 03/30/17 16:27 03/30/17 16:31
[2017-03-30] MEDS ORDERED: HALOPERIDOL LACTATE 5 MG/ML 1 ML VIAL IM PRN (21:25)
[2017-03-30] MEDS ORDERED: OLANZapine ODT 5 MG TAB PO ONE (21:37)
[2017-03-31] MEDS: POTASSIUM CHLORIDE 10 MEQ, LIDOCAINE 2% INJ 10 MG in SODIUM CHLORIDE 0.9% 100 ML IVPB SCH ×6 (04:49→23:53)
--- NOTE | 2017-03-31 05:56 | PN ---
DATE OF SERVICE: 03/30/2017 Reason for followup is possible pyelonephritis. INTERVAL HISTORY: The patient overall feels better and has improved. Afebrile this morning. Apparently the patient is more awake and has been talking, but did not answer any of my questions. No nausea or vomiting has been noticed or any diarrhea. On examination, blood pressure is 177/95 with a pulse of 89, temperature 99. She is 97% on 2 L nasal cannula. General description is a middle age female lying in bed in no distress. RESPIRATORY SYSTEM: Unlabored breathing. Coarse breath sounds ( ). HEART: S1 and S2, regular rate and rhythm. ABDOMEN: Soft. No tenderness. LABS: Hemoglobin is 12.9, white count 12.3 with a BUN of 8 and creatinine 0.50. Culture are currently pending. Blood cultures so far negative. DIAGNOSTIC IMPRESSION AND PLAN: The patient admitted to the hospital with mental status changes and a fever with a concern for possible pyelonephritis seen on the CT. UA has not been significantly positive and no ( ) focus of infection. Fever responded to Rocephin and that will be continued. Await psychiatric evaluation. ( ) low for CLERICAL ADMINISTRATOR infection. Plan of care was discussed with the attending physician. STEVE
[2017-03-31] MEDS: ALBUTEROL NEBULIZED 2.5 MG/3 ML INHALATION PRN ×3 (07:31→20:41)
[2017-03-31] MEDS: DEXTROSE 5%-0.45% NACL 1,000 ML IV SCH ×3 (07:35→22:45)
[2017-03-31 08:09] LABS: CH 31.1; CHCM 34.2; HCT 40.9 % (34.0-46.0); HDW 2.83; HGB 13.6 gm/dL (11.4-16.0); MCH 30.3 pg (25.0-35.0); MCHC 33.2 g/dL (31.0-37.0); MCV 91.4 fL (80.0-100.0); Mean Platelet Volume 7.5; RBC 4.47 m/uL (3.80-5.40); RDW 12.9 % (11.5-15.5); WBC 15.3 k/uL (3.8-10.6)
[2017-03-31 08:31] LABS: Anion Gap 11 mmol/L; Blood Urea Nitrogen 4 mg/dL (7-17); Calcium 9.4 mg/dL (8.4-10.2); Carbon Dioxide 24 mmol/L (22-30); Chloride 110 mmol/L (98-107); Glucose 118 mg/dL (74-99); Non-African American GFR(MDRD) >60 (>60 ml/min/1.73 sqM); Potassium 3.1 mmol/L (3.5-5.1); Sodium 145 mmol/L (137-145)
[2017-03-31] MEDS: THIAMINE 100 MG/ML 2 ML VIAL IVP SCH (09:10)
[2017-03-31] MEDS: PANTOPRAZOLE 40 MG TABLET PO SCH (09:10)
[2017-03-31] MEDS: cefTRIAXone 2,000 MG in SODIUM CHLORIDE 0.9% 100 ML IVPB SCH (09:11)
[2017-03-31] MEDS ORDERED: Magnesium Replacement Protocol 1 EACH MISC MISCELLANE PRN (11:30)
--- NOTE | 2017-03-31 13:01 | PN ---
DATE OF SERVICE: 03/31/2017 Reason for followup is right-sided pyelonephritis. INTERVAL HISTORY: The patient is afebrile. She is awake and alert. She is up in the bed. The patient denies significant chest pain or shortness of breath. Very minimal cough. No nausea, vomiting or any diarrhea. On examination, blood pressure is 144/92 with a pulse of 78, temperature 97.1. She is 99% on room air. General description is an middle-aged female up in the bed in no distress. RESPIRATORY SYSTEM: Unlabored breathing, clear to auscultation with crackles. HEART: S1, S2 regular rate and rhythm. ABDOMEN: Soft, no tenderness. LABS: The white count is slightly elevated at 15.3 with a BUN of 4, creatinine 0.54. Blood and the urine culture are so far negative. DIAGNOSTIC IMPRESSION AND PLAN: Patient admitted to the hospital with mental status changes and a fever with evidence of pyelonephritis on the CT. The urine has been significantly positive. Blood culture has been negative, no other clinical source of infection. Lungs are clear to auscultation. No evidence of any cellulitis and she responded to Rocephin. Will switch to p.o. Ceftin following 500 mg b.i.d. for another 10 days to finish a course of therapy with close followup. Continue supportive care. MTDD
--- NOTE | 2017-03-31 13:42 | P.PN ---
Progress Note - Text Interval History: Patient is a 51-year-old female who was seen yesterday in consultation due to altered mental status. At that time patient was nonverbal and was not eating. Last evening I was contacted due to the patient becoming agitated and she was given Zyprexa Zydis 5 mg and per nursing she did not sleep during the evening. Patient was seen today and she was verbal telling me that she was more confused yesterday and her thinking is clear. She reports that she did not understand my questions yesterday but does today. She stated that she had gone to court for her first DUI last week and was told by the hardware installer to stop drinking and using Xanax which she states she did when she returned home. She reports that she was using 1 mg of Xanax 3 times a day and has been on this for at least 10 years, she was also drinking a 12 pack of beer a day. She states that she stopped the alcohol and the Xanax, becoming more confused, was not eating and was sitting in a chair until her boyfriend brought her to the emergency room. She states that she is less confused today and his understanding of my questions but is continuing to feel slightly nauseated and has not eaten much for breakfast or lunch. Patient states that she is living with her boyfriend she is not sure of how long , she states she was and and think she was for roughly 10 years and has 2 children a son and daughter, she is unable to tell me their ages. Patient continues to have difficulty recalling things and remains a poor historian. Patient states that she's been on Xanax to help her sleep as well as improve her eating. Mental Status: Appearance/Attitude: Patient was alert and sitting in her hospital bed and was cooperative with the interview. Behavior: Patient was sitting quietly in her bed, she was not agitated but appeared slightly psychomotor retarded. Speech/Language: Patient's speech was of normal volume and rhythm, she only responded to my questions Thought Process: Patient responded to my questions with brief answers, she was coherent. Thought Content: Patient denied any auditory or visual hallucinations no delusions were elicited. Suicidal/Homicidal Ideation: She denied any current suicidal or homicidal ideation. Sensorium/Cognition: Patient was alert, oriented to person, oriented to place while looking at the written in the hospital, she was oriented to date by looking at the date on the board in her room and was able to state the month from a numerical number of the month. She reports problems with her memory and she has a difficult time telling me how long she was , the ages of her children and states that she has had difficulty with her memory in the past but cannot elaborate on this. Mood/Affect: Patient reported her mood was okay her affect remained blunted Insight/Judgement: Patient's insight and judgment are limited Assessment: Patient appears to have a delirium secondary to her discontinuation of alcohol and Xanax, she was unable to describe and shows no evidence of any acute withdrawal symptoms and she reports her last use of alcohol and Xanax was at least one week ago. She is more alert today and his verbal and states that she is less confused however continues to have difficulty recalling past events , and in understanding some of my questions. She has no evidence of any psychotic process, denies being depressed, and states she is understanding my questions today. Patient received Zyprexa Zydis 5 mg last evening with limited effect this patient apparently did not sleep much during the evening. Patient continues to not eat stating that she still feels somewhat nauseated but better than she did on admission. Plan: Patient does not require inpatient psychiatric care as her diagnosis is delirium secondary to alcohol and benzodiazepine withdrawal. Patient will be given Risperdal M-Tab 0.25 mg now and she was agreeable to this medication. I spoke with the nurse states that the treating team is going to discharge the patient today and I recommend continuing her on Risperdal M tab 0.25 mg at bedtime for 3 days to treat her delirium. I also recommend that she be given referrals for outpatient substance abuse treatment. I also recommend that the patient not be restarted on any benzodiazepines at discharge. Patient should be evaluated by her primary care doctor 5 days after discharge to see if her delirium has resolved.
[2017-03-31] MEDS ORDERED: risperiDONE 0.25 MG TAB PO STA (13:44)
[2017-03-31] MEDS: POTASSIUM CHLORIDE ER 20 MEQ TAB.ER PO SCH (17:04)
--- NOTE | 2017-03-31 17:33 | P.DS ---
Providers Date of admission: 03/28/17 20:35 Expected date of discharge: 03/31/17 Attending physician: Lavern Aviles Consults: 03/29/17 12:47 Consult Physician Routine Consulting Provider: Ewa Iglesias Consult Reason/Comments: AMS Do you want consulting provider notified?: Yes 03/29/17 13:36 Consult Physician Routine Consulting Provider: Luci Valles Consult Reason/Comments: high temps Do you want consulting provider notified?: Already Contacted Primary care physician: Physician Nonstaff Dr. Mccullough Hospital Course: Final Diagnoses: #1 sepsis: Source of sepsis is not clear may be related to pyelonephritis or urinary tract infection. #2 possible toxic encephalopathy from sepsis and overuse of medications. 3 hyponatremia: Hypovolemic hyponatremia . 4 polysubstance abuse in the past and present #5 severe depression 51-year-old female is admitted for fever, sepsis possible source being urinary tract infection, in a patient with history of polysubstance abuse. Evaluated by psychiatry, medication regimen adjusted. Evaluated by and received antibiotics as per infectious disease. Significant clinical improvement. Evaluated by physical therapy and subacute rehab recommended at discharge. Patient will need polysubstance abuse rehab., Once she completes subacute rehab. Patient has been cleared by all consults for discharge. Patient is being discharged to a subacute rehab in a stable condition with guarded prognosis. The impression and plan of care has been dictated as directed as a scribe. : I performed a H&P examination of this patient and discussed the same with the dictator. I agree with the dictator's note. Any additional findings/opinions/ etc. will be noted. Patient Condition at Discharge: Fair Plan - Discharge Summary New Discharge Prescriptions: New Cefuroxime Axetil [Ceftin] 500 mg PO BID #20 tab Pantoprazole [Protonix] 40 mg PO DAILY tab Thiamine [Vitamin B-1] 100 mg PO DAILY #1 tablet Folic Acid 1 mg PO DAILY #30 tablet Multivitamins, Thera [Multivitamin (formulary)] 1 tab PO DAILY #1 tablet risperiDONE [RisperDAL] 0.25 mg PO HS tab Continue Pregabalin [Lyrica] 150 mg PO TID Methadone HCl 5 mg PO QID Ipratropium [place] [Atrovent Hfa] 2 puff INHALATION RT-QID Albuterol Sulfate [Ventolin HFA] 1 - 2 puff INHALATION RT-Q4H PRN PRN Reason: Shortness Of Breath Loratadine [Claritin] 10 mg PO DAILY Fenofibrate [Lofibra] 160 mg PO DAILY Discontinued Venlafaxine HCl ER [Effexor XR] 75 mg PO DAILY Temazepam [Restoril] 15 mg PO HS ALPRAZolam [Xanax] 2 mg PO TID PRN PRN Reason: Anxiety Discharge Medication List Albuterol Sulfate [Ventolin HFA] 1 - 2 puff INHALATION RT-Q4H PRN 02/26/17 [ History] Ipratropium [place] [Atrovent Hfa] 2 puff INHALATION RT-QID 02/26/17 [History] Methadone HCl 5 mg PO QID 02/26/17 [History] Pregabalin [Lyrica] 150 mg PO TID 02/26/17 [History] Fenofibrate [Lofibra] 160 mg PO DAILY 03/28/17 [History] Loratadine [Claritin] 10 mg PO DAILY 03/28/17 [History] Cefuroxime Axetil [Ceftin] 500 mg PO BID #20 tab 03/31/17 [Rx] Folic Acid 1 mg PO DAILY #30 tablet 03/31/17 [Rx] Multivitamins, Thera [Multivitamin (formulary)] 1 tab PO DAILY #1 tablet [Rx] Pantoprazole [Protonix] 40 mg PO DAILY tab 03/31/17 [Rx] Thiamine [Vitamin B-1] 100 mg PO DAILY #1 tablet 03/31/17 [Rx] risperiDONE [RisperDAL] 0.25 mg PO HS tab 03/31/17 [Rx] Follow up Appointment(s)/Referral(s): Madiha Mccullough MD [REFERRING] - 3 Days (after [place] from [facility] [place] Ewa Iglesias MD [Medical Doctor] - 03/31/17 Activity/Diet/Wound Care/Special Instructions: Lexapro on hold until delirium resolves as per psychiatry, Effexor as per psychiatry cbc,bmp in am Once subacute rehab completed, patient will need referrals for outpatient substance abuse treatment. Discharge Disposition: TRANSFER TO SNF/ECF
[2017-04-01] MEDS: POTASSIUM CHLORIDE 10 MEQ, LIDOCAINE 2% INJ 10 MG in SODIUM CHLORIDE 0.9% 100 ML IVPB SCH ×2 (04:58→06:00)
[2017-04-01] MEDS: DEXTROSE 5%-0.45% NACL 1,000 ML IV SCH ×2 (07:40→15:12)
[2017-04-01] MEDS: cefTRIAXone 2,000 MG in SODIUM CHLORIDE 0.9% 100 ML IVPB SCH (07:44)
[2017-04-01] MEDS: THIAMINE 100 MG/ML 2 ML VIAL IVP SCH (07:45)
[2017-04-01] MEDS: PANTOPRAZOLE 40 MG TABLET PO SCH (07:45)
[2017-04-01] MEDS ORDERED: Potassium Replacement Protocol 1 EACH MISC MISCELLANE PRN (13:45)
[2017-04-01] MEDS: POTASSIUM CHLORIDE ORAL LIQUID 40 MEQ/30 ML CUP PO SCH ×4 (14:20→23:12)
--- NOTE | 2017-04-01 14:43 | P.PN ---
Progress Note - Text Interval History: This is follow-up to a consultation and a 51-year-old female who was admitted due to altered mental status. Patient was begun on Risperdal 0.25 mg daily at bedtime and received 2 doses yesterday, one a stat dose and one scheduled. Patient was seen today she was sitting up in bed but reported that she has not been eating well due to some nausea. Patient states that she did sleep better last evening. She reports she is not as confused as she was on admission or yesterday. Patient orients herself by looking at the board in the hospital room, she was able to state the date as 04/01/2017. Patient was more able to focus while I spoke with her and she appeared to be able to follow our conversation. Spoke with her nursing staff report that patient did sleep last evening, there' ve been no behavioral problems but she does continue at times to respond incorrectly to questions, such as when asked what type of juice she would like to drink the patient responded with something completely irrelevant. Mental Status: Appearance/Attitude: Patient was sitting in bed, in no apparent distress and she was cooperative and made good eye contact. Behavior: Patient did not exhibit any psychomotor retardation or agitation. Speech/Language: Her speech was not spontaneous, she only responded to my questions and was not able to elaborate further than brief sentences. Her speech is of normal volume and rhythm. Thought Process: Patient responded to some questions appropriately and relevantly, to some of the nurses questions however she is not responding relevantly. Patient responded to my questions brief sentences that were coherent and relevant. Thought Content: Patient denied any auditory or visual hallucinations and no delusions or paranoid ideation were elicited. Patient stated she was in the hospital due to her use of alcohol and drugs. She reports that she slept better last evening but continues to report poor appetite with nausea when she eats. Suicidal/Homicidal Ideation: She denied any current suicidal or homicidal ideation. Sensorium/Cognition: Patient was alert and oriented to person she was able to orient herself to the date by looking at the board and was able to state the month was March from 7 on the board for the month. Patient is aware she is in a hospital. Patient continues to have difficulty recalling historical information , was unable to tell me the ages of her children. Mood/Affect: Patient's mood was euthymic and her affect was appropriate. Insight/Judgement: Patient's insight and judgment are limited. Assessment: Patient has not exhibited any behavioral disturbances and is sleeping better at night however her appetite remains poor, she states due to her nausea. Patient continues to respond to some questions in an irrelevant but coherent fashion. Her memory remains poor for both remote and recent events. Patient has been cooperative with staff on the unit. Plan: At this time would continue the Risperdal 0.25 mg at bedtime and would continue this at discharge until patient's mental status has returned to baseline. It is unclear to me if the patient's cognitive difficulties are all due to her delirium. Plan is for patient to be transferred to an extended care facility close to her son.
--- NOTE | 2017-04-01 15:11 | PN ---
DATE OF SERVICE: 04/01/2017 Reason for follow up is possible pyelonephritis. INTERVAL HISTORY: The patient is afebrile. She is breathing comfortably. Patient denies significant chest pain, shortness of breath, no cough. No abdominal pain, no nausea, vomiting or any diarrhea. On examination, blood pressure is 180/90 with a pulse of 91. Temperature 98. She is 96% on room air. General description is a middle-aged female up in the bed in no distress. RESPIRATORY SYSTEM: Unlabored breathing, clear to auscultation anteriorly. HEART: S1, S2, regular rate and rhythm. ABDOMEN: Soft, no tenderness. LABS: No new lab has been obtained today, considered to be negative. DIAGNOSTIC IMPRESSION AND PLAN: Patient admitted to the hospital with a fever and mental status changes. Consult for possible urinary tract infection with a CT abdomen showing evidence of pyelonephritis. UA was negative. ( ) responded to the Rocephin. Plan to finish therapy with p.o. Ceftin 500 mg twice a day for another 10 days. Continue with supportive care. MTDD
[2017-04-01] MEDS ORDERED: POTASSIUM CHLORIDE ORAL LIQUID 40 MEQ/30 ML CUP PO ONE (17:57)
--- NOTE | 2017-04-01 18:44 | P.PN ---
Subjective Date of service 03/31/2017. Progress note being dictated for Dr. Aviles Interval history: This is a 51-year-old female is admitted for fever, sepsis possible source being urinary tract infection, in a patient with history of polysubstance abuse. Evaluated by psychiatry, medication regimen adjusted. Evaluated by and received antibiotics as per infectious disease. Evaluated by psychiatry with recommendations noted. Significant clinical improvement. Evaluated by physical therapy and subacute rehab recommended. Maintained on Rocephin. Afebrile. Denies chest pain, palpitations or increasing shortness of breath. Occasional nonproductive cough. Diet intake improving, no nausea vomiting or diarrhea. Denies abdominal pain. Objective - Vital Signs Vital signs: Vital Signs Temp 97.6 F 03/31/17 14:04 Pulse 92 03/31/17 16:00 Resp 18 03/31/17 16:00 BP 169/80 03/31/17 14:04 Pulse Ox 97 03/31/17 14:04 Intake & Output 03/30/17 03/31/17 03/31/17 18:59 06:59 18:59 Intake Total 4273 264 4947 Balance 5564 492 9231 Weight 58.967 kg 58.967 kg Intake: Intake, IV Titration 1050 100 932 Amount Dextrose 5%-0.45% NaCl 1, 750 732 000 ml @ 100 mls/hr IV . Q10H JAKI Rx#:[id number] Potassium Chloride 10 meq 200 Lidocaine 2% Inj 10 mg In Sodium Chloride 0.9% 100 ml @ 100 mls/hr IVPB Q1HR JAKI Rx#:[id number] Potassium Chloride 10 meq 100 Lidocaine 2% Inj 10 mg In Sodium Chloride 0.9% 100 ml @ 100 mls/hr IVPB Q1HR JAKI Rx#:[id number] Potassium Chloride 10 meq 100 Lidocaine 2% Inj 10 mg In Sodium Chloride 0.9% 100 ml @ 100 mls/hr IVPB Q1HR JAKI Rx#:[id number] cefTRIAXone 2,000 mg In 100 100 Sodium Chloride 0.9% 100 ml @ 100 mls/hr IVPB Q24HR JAKI Rx#:[id number] Oral 200 Other: Voiding Method Bedpan Bedside Commode Bedside Commode Diaper # Voids 3 1 3 # Bowel Movements 1 1 - Exam GENERAL: The patient is alert and oriented x3, not in any acute distress. Well developed, well nourished. HEENT: Pupils are round and equally reacting to light. EOMI. No scleral icterus. No conjunctival pallor. Normocephalic, atraumatic. No pharyngeal erythema. No thyromegaly. CARDIOVASCULAR: S1 and S2 present. No murmurs, rubs, or gallops. PULMONARY: Chest is clear to auscultation, no wheezing or crackles. ABDOMEN: Soft, nontender, nondistended, normoactive bowel sounds. No palpable organomegaly. MUSCULOSKELETAL: No joint swelling or deformity. EXTREMITIES: No cyanosis, clubbing, or pedal edema. NEUROLOGICAL: Gross neurological examination did not reveal any focal deficits. SKIN: No rashes. - Labs CBC & Chem 7: 03/31/17 07:38 04/01/17 16:24 Labs: Abnormal Lab Results - Last 24 Hours (Table) 03/30/17 03/31/17 03/31/17 Range/Units 17:41 03:07 07:38 WBC 15.3 H (3.8-10.6) k/uL Potassium 3.0 L* 2.8 L* (3.5-5.1) mmol/L Chloride (98-107) mmol/L BUN (7-17) mg/dL Glucose (74-99) mg/dL 03/31/17 03/31/17 Range/Units 07:38 10:03 WBC (3.8-10.6) k/uL Potassium 3.1 L 3.2 L (3.5-5.1) mmol/L Chloride 110 H (98-107) mmol/L BUN 4 L (7-17) mg/dL Glucose 118 H (74-99) mg/dL Microbiology - Last 24 Hours (Table) 03/29/17 13:54 Blood Culture - Preliminary Blood No Growth after 48 hours 03/29/17 16:30 Urine Culture - Final Urine,Voided Assessment and Plan Plan: #1 sepsis: Source of sepsis is not clear may be related to pyelonephritis or urinary tract infection. #2 possible toxic encephalopathy from sepsis and overuse of medications, improving 3 hyponatremia: Hypovolemic hyponatremia . Improved with half normal saline 4 polysubstance abuse in the past and present #5 severe depression: Psychiatry on consult as all her symptoms of presentation appears to be related to severe depression. Plan: Continue on current medication regime ,monitoring and symptomatic treatment. Follow cultures closely. Antibiotics as per infectious disease. Psychiatry recommendations noted. Discharge planning in progress for ECF rehab. Further recommendations to follow. The impression and plan of care has been dictated as directed. : I performed a H&P examination of this patient and discussed the same with the dictator. I agree with the dictator's note. Any additional findings/opinions/ etc. will be noted.
--- NOTE | 2017-04-01 18:49 | P.PN ---
Subjective Date of service 03/31/2017. Progress note being dictated for Dr. Aviles Interval history: This is a 51-year-old female is admitted for fever, sepsis possible source being urinary tract infection, in a patient with history of polysubstance abuse. Evaluated by psychiatry, medication regimen adjusted. Evaluated by and received antibiotics as per infectious disease. Evaluated by psychiatry with recommendations noted. Significant clinical improvement. Evaluated by physical therapy and subacute rehab recommended. Maintained on Rocephin. Afebrile. Denies chest pain, palpitations or increasing shortness of breath. Occasional nonproductive cough. Diet intake improving, no nausea vomiting or diarrhea. Denies abdominal pain. 04/01/2017 continues to have significant clinical improvement compared to even yesterday. Maintained on antibiotics. Afebrile. Potassium supplemented, currently at 3.7. Denies chest pain, palpitations or increasing shortness of breath. Objective - Vital Signs Vital signs: Vital Signs Temp 97.9 F 04/01/17 15:00 Pulse 92 04/01/17 15:00 Resp 20 04/01/17 15:00 BP 180/80 04/01/17 15:00 Pulse Ox 96 04/01/17 15:00 Intake & Output 03/31/17 04/01/17 04/01/17 18:59 06:59 18:59 Intake Total 3925 704 6954 Balance 3828 061 4380 Weight 58.967 kg Intake: Intake, IV Titration 932 900 300 Amount Dextrose 5%-0.45% NaCl 1, 732 700 000 ml @ 100 mls/hr IV . Q10H JAKI Rx#:[id number] Potassium Chloride 10 meq 100 Lidocaine 2% Inj 10 mg In Sodium Chloride 0.9% 100 ml @ 100 mls/hr IVPB Q1HR JAKI Rx#:[id number] Potassium Chloride 10 meq 100 100 Lidocaine 2% Inj 10 mg In Sodium Chloride 0.9% 100 ml @ 100 mls/hr IVPB Q1HR JAKI Rx#:[id number] Potassium Chloride 10 meq 100 100 Lidocaine 2% Inj 10 mg In Sodium Chloride 0.9% 100 ml @ 100 mls/hr IVPB Q1HR JAKI Rx#:[id number] cefTRIAXone 2,000 mg In 100 100 Sodium Chloride 0.9% 100 ml @ 100 mls/hr IVPB Q24HR JAKI Rx#:[id number] Oral 200 720 Other: Voiding Method Bedside Commode Bedside Commode Bedside Commode Diaper Diaper Diaper # Voids 3 # Bowel Movements 1 - Labs CBC & Chem 7: 03/31/17 07:38 04/01/17 16:24 Labs: Abnormal Lab Results - Last 24 Hours (Table) 03/31/17 04/01/17 04/01/17 Range/Units 19:54 03:05 11:36 Potassium 2.9 L* 3.3 L 3.3 L (3.5-5.1) mmol/L Microbiology - Last 24 Hours (Table) 03/29/17 13:54 Blood Culture - Preliminary Blood No Growth after 72 hours Assessment and Plan Plan: #1 sepsis: Source of sepsis is not clear may be related to pyelonephritis or urinary tract infection. #2 possible toxic encephalopathy from sepsis and overuse of medications, improving 3 hyponatremia: Hypovolemic hyponatremia . Improved with half normal saline 4 polysubstance abuse in the past and present #5 severe depression: Psychiatry on consult as all her symptoms of presentation appears to be related to severe depression. Plan: Continue on current medication regime ,monitoring and symptomatic treatment. Antibiotics as per infectious disease. Discharge planning in progress for [facility] rehab. Further recommendations to follow. The impression and plan of care has been dictated as directed. : I performed a H&P examination of this patient and discussed the same with the dictator. I agree with the dictator's note. Any additional findings/opinions/ etc. will be noted.
[2017-04-01] MEDS: risperiDONE 0.25 MG TAB PO SCH (20:34)
[2017-04-02] MEDS: DEXTROSE 5%-0.45% NACL 1,000 ML IV SCH ×2 (08:01→09:41)
[2017-04-02] MEDS: cefTRIAXone 2,000 MG in SODIUM CHLORIDE 0.9% 100 ML IVPB SCH (08:03)
[2017-04-02] MEDS: PANTOPRAZOLE 40 MG TABLET PO SCH ×3 (08:04→09:45)
[2017-04-02] MEDS: THIAMINE 100 MG/ML 2 ML VIAL IVP SCH (08:04)
[2017-04-02] MEDS: POTASSIUM CHLORIDE 10 MEQ, LIDOCAINE 2% INJ 10 MG in SODIUM CHLORIDE 0.9% 100 ML IVPB SCH ×5 (09:33→19:38)
[2017-04-02] MEDS: traMADol 50 MG TAB PO PRN ×2 (11:30→22:27)
[2017-04-02] MEDS: ESOMEPRAZOLE 20 MG in SODIUM CHLORIDE 0.9% 50 ML IVPB SCH (13:57)
--- NOTE | 2017-04-02 18:02 | P.PN ---
Subjective Date of service 03/31/2017. Progress note being dictated for Dr. Aviles Interval history: This is a 51-year-old female is admitted for fever, sepsis possible source being urinary tract infection, in a patient with history of polysubstance abuse. Evaluated by psychiatry, medication regimen adjusted. Evaluated by and received antibiotics as per infectious disease. Evaluated by psychiatry with recommendations noted. Significant clinical improvement. Evaluated by physical therapy and subacute rehab recommended. Maintained on Rocephin. Afebrile. Denies chest pain, palpitations or increasing shortness of breath. Occasional nonproductive cough. Diet intake improving, no nausea vomiting or diarrhea. Denies abdominal pain. 04/01/2017 continues to have significant clinical improvement compared to even yesterday. Maintained on antibiotics. Afebrile. Potassium supplemented, currently at 3.7. Denies chest pain, palpitations or increasing shortness of breath. 04/02/2017 complaining of generalized discomfort from "head to toe", Potassium being supplemented. Denies chest pain, palpitations or increasing shortness of breath. Objective - Vital Signs Vital signs: Vital Signs Temp 98.0 F 04/02/17 15:00 Pulse 90 04/02/17 16:00 Resp 18 04/02/17 16:00 BP 142/90 04/02/17 15:00 Pulse Ox 96 04/02/17 15:00 Intake & Output 04/01/17 04/02/17 04/02/17 18:59 06:59 18:59 Intake Total 1020 Balance 1020 Weight 58.967 kg Intake: Intake, IV Titration 300 Amount Potassium Chloride 10 meq 100 Lidocaine 2% Inj 10 mg In Sodium Chloride 0.9% 100 ml @ 100 mls/hr IVPB Q1HR JAKI Rx#:[id number] Potassium Chloride 10 meq 100 Lidocaine 2% Inj 10 mg In Sodium Chloride 0.9% 100 ml @ 100 mls/hr IVPB Q1HR JAKI Rx#:[id number] cefTRIAXone 2,000 mg In 100 Sodium Chloride 0.9% 100 ml @ 100 mls/hr IVPB Q24HR JAKI Rx#:[id number] Oral 720 Other: Voiding Method Bedside Commode Bedside Commode Bedside Commode Diaper Diaper Diaper # Voids 1 1 # Bowel Movements 1 - Exam GENERAL: The patient is alert and oriented x2, not in any acute distress. Well developed, well nourished. HEENT: Pupils are round and equally reacting to light. EOMI. No scleral icterus. No conjunctival pallor. Normocephalic, atraumatic. No pharyngeal erythema. No thyromegaly. CARDIOVASCULAR: S1 and S2 present. No murmurs, rubs, or gallops. PULMONARY: Chest is clear to auscultation, no wheezing or crackles. ABDOMEN: Soft, nontender, nondistended, normoactive bowel sounds. No palpable organomegaly. MUSCULOSKELETAL: No joint swelling or deformity. EXTREMITIES: No cyanosis, clubbing, or pedal edema. NEUROLOGICAL: Gross neurological examination did not reveal any focal deficits. SKIN: No rashes. - Labs CBC & Chem 7: 03/31/17 07:38 04/02/17 13:54 Labs: Abnormal Lab Results - Last 24 Hours (Table) 04/02/17 04/02/17 Range/Units 07:15 13:54 Potassium 3.2 L 3.4 L (3.5-5.1) mmol/L Microbiology - Last 24 Hours (Table) 03/29/17 13:54 Blood Culture - Preliminary Blood No Growth after 96 hours Assessment and Plan Plan: #1 sepsis: Source of sepsis is not clear may be related to pyelonephritis or urinary tract infection. #2 possible toxic encephalopathy from sepsis and overuse of medications, improving 3 hyponatremia: Hypovolemic hyponatremia . Improved with half normal saline 4 polysubstance abuse in the past and present #5 severe depression: Psychiatry on consult as all her symptoms of presentation appears to be related to severe depression. Plan: Continue on current medication regime ,monitoring and symptomatic treatment. Ultram added to med regime. Antibiotics as per infectious disease. Discharge planning in progress for [facility] rehab. pending authorization. Further recommendations to follow. The impression and plan of care has been dictated as directed. : I performed a H&P examination of this patient and discussed the same with the dictator. I agree with the dictator's note. Any additional findings/opinions/ etc. will be noted.
--- NOTE | 2017-04-02 18:47 | PN ---
DATE OF SERVICE: 04/02/2017 REASON FOR FOLLOWUP: Likely pyelonephritis. INTERVAL HISTORY: The patient is afebrile. She is breathing comfortably. Denies significant chest pain or shortness of breath or cough. No abdominal pain or nausea, vomiting or any diarrhea. On examination, blood pressure is 161/93 with a pulse of 102, temperature 98.1. She is 97% on room air. General description is a middle-aged female up in the bed in no distress. RESPIRATORY SYSTEM: Unlabored breathing. Clear to auscultation anteriorly. HEART: S1, S2. Regular rate and rhythm. ABDOMEN: Soft. No tenderness. LABS: Potassium was 3.4. DIAGNOSTIC IMPRESSION AND PLAN: Patient admitted to hospital with a fever with concern about possible pyelonephritis on the basis of the CT. Patient with overall improvement with resolution of fever with Rocephin, which will be switched to Ceftin 500 mg b.i.d. for another week to 10 days to finish the course of therapy. Continue supportive care. MTDD
[2017-04-02] MEDS: risperiDONE 0.25 MG TAB PO SCH (22:27)
[2017-04-03] MEDS ORDERED: Potassium Replacement Protocol 1 EACH MISC MISCELLANE PRN ×2 (00:02→05:28)
[2017-04-03 01:32] LABS: Glucose,Whole Blood 143 mg/dL (75-99)
[2017-04-03] MEDS: DEXTROSE 5%-0.45% NACL 1,000 ML IV SCH ×3 (01:37→18:14)
[2017-04-03] MEDS: POTASSIUM CHLORIDE 10 MEQ, LIDOCAINE 2% INJ 10 MG in SODIUM CHLORIDE 0.9% 100 ML IV SCH ×4 (01:38→07:31)
[2017-04-03 04:40] LABS: Basophils % (A) 0 %; CH 31.7; CHCM 34.7; Eosinophils # (A) 0.1 k/uL (0-0.7); Eosinophils % (A) 1 %; HDW 2.77; HGB 12.9 gm/dL (11.4-16.0); Luc # (Auto) 0.16; Luc % (Auto) 2; Lymphocytes # (A) 1.3 k/uL (1.0-4.8); Lymphocytes % (A) 15 %; MCH 31.9 pg (25.0-35.0); MCHC 34.8 g/dL (31.0-37.0); MCV 91.8 fL (80.0-100.0); Mean Platelet Volume 7.6; Monocytes # (A) 0.3 k/uL (0-1.0); Monocytes % (A) 3 %; Neutrophils # (A) 7.1 k/uL (1.3-7.7); Neutrophils % (A) 79 %; RBC 4.03 m/uL (3.80-5.40); RDW 13.8 % (11.5-15.5); WBC (Perox) 8.89
[2017-04-03 04:50] LABS: Anion Gap 10 mmol/L; Blood Urea Nitrogen 2 mg/dL (7-17); Calcium 9.5 mg/dL (8.4-10.2); Carbon Dioxide 24 mmol/L (22-30); Chloride 106 mmol/L (98-107); Glucose 103 mg/dL (74-99); Non-African American GFR(MDRD) >60 (>60 ml/min/1.73 sqM); Potassium 3.6 mmol/L (3.5-5.1); Sodium 140 mmol/L (137-145)
[2017-04-03] MEDS: THIAMINE 100 MG/ML 2 ML VIAL IVP SCH (07:33)
[2017-04-03] MEDS ORDERED: LORazepam 2 MG/ML SYRINGE IV STA (08:43)
[2017-04-03 08:47] LABS: Glucose,Whole Blood 106 mg/dL (75-99)
[2017-04-03] MEDS ORDERED: levETIRAcetam IV 500 MG in SODIUM CHLORIDE 0.9% 100 ML IVPB STA (08:47)
[2017-04-03 09:37] LABS: Magnesium 1.3 mg/dL (1.6-2.3); Potassium 3.8 mmol/L (3.5-5.1)
--- NOTE | 2017-04-03 12:11 | CT ---
EXAMINATION TYPE: CT brain wo con DATE OF EXAM: 04/03/2017 COMPARISON: 03/28/2017 HISTORY: Altered mental status CT DLP: [address] of the brain was performed. The ventricles, basal cisterns and sulci overlying the cerebral convexities demonstrate mild enlargem ent. There is no evidence for intracranial hemorrhage or sulcal effacement. There is decreased attenuation about the periventricular white matter and deep white matter of both c erebral hemispheres, compatible with chronic small vessel ischemia. Differential diagnosis does inclu de demyelination. No mass effects are seen.No midline shift. Osseous calvarium is intact. If symptoms persist consider MRI. IMPRESSION: 1. Age related atrophic and chronic small vessel ischemic change without acute intracranial process s een at this time.
[2017-04-03] MEDS: ESOMEPRAZOLE 20 MG in SODIUM CHLORIDE 0.9% 50 ML IVPB SCH (13:52)
[2017-04-03] MEDS: cefTRIAXone 2,000 MG in SODIUM CHLORIDE 0.9% 100 ML IVPB SCH (13:52)
--- NOTE | 2017-04-03 14:08 | P.PN ---
Progress Note - Text Interval History: This is a follow-up to a consultation on this patient for altered mental status. Patient was sleeping when I went to the unit to see her. Nursing staff reports that the patient had a seizure this morning. Patient was last seen on Thursday and had been continued on Risperdal 0.25 mg in the evening. Patient was not examined as she was sleeping. Assessment: Patient had shown improvement however this morning had a seizure. She was asleep not easily aroused and so was not examined. I spoke with her attending regarding her medications. Plan: I recommend that her Risperdal be discontinued due to it possibly lowering her seizure threshold. I would not restart her Lexapro upon discharge , but would have patient evaluated if such medication seems necessary in the future. Plans for patient to be discharged to an extended care facility.
[2017-04-03] MEDS: MAGNESIUM SULFATE-D5W PMX 1 GM in DEXTROSE/WATER 1 100ML.BAG IVPB SCH ×3 (15:03→17:03)
--- NOTE | 2017-04-03 16:37 | P.DS ---
Providers Date of admission: 03/28/17 20:35 Expected date of discharge: 04/04/17 Attending physician: Lavern Aviles Consults: 03/29/17 12:47 Consult Physician Routine Consulting Provider: Ewa Iglesias Consult Reason/Comments: AMS Do you want consulting provider notified?: Yes 03/29/17 13:36 Consult Physician Routine Consulting Provider: Luci Valles Consult Reason/Comments: high temps Do you want consulting provider notified?: Already Contacted 04/03/17 09:52 Consult Physician Routine Consulting Provider: Cecelia Trevizo Consult Reason/Comments: Seizure Do you want consulting provider notified?: Already Contacted Primary care physician: Physician Nonstaff Dr. Mccullough Hospital Course: Final Diagnoses: #1 sepsis: Source of sepsis is not clear may be related to pyelonephritis or urinary tract infection. #2 possible toxic encephalopathy from sepsis and overuse of medications. 3 hyponatremia: Hypovolemic hyponatremia . 4 polysubstance abuse in the past and present #5 severe depression #6 tramadol induced seizures, tramadol discontinued EEG completed results pending, Keppra initiated, further neuro workup OP. 51-year-old female is admitted for fever, sepsis possible source being urinary tract infection, in a patient with history of polysubstance abuse. Evaluated by psychiatry, medication regimen adjusted. Evaluated by and received antibiotics as per infectious disease. Methadone discontinued, tramadol added to med regime, developed seizures felt to be tramadol induced .tramadol discontinued, Keppra and naproxen added to med regime.Significant clinical improvement. Evaluated by physical therapy and subacute rehab recommended at discharge. Patient will need polysubstance abuse rehab.,once she completes subacute rehab. Patient has been cleared by all consults for discharge. Patient is being discharged to a subacute rehab in a stable condition with guarded prognosis. The impression and plan of care has been dictated as directed as a scribe. : I performed a H&P examination of this patient and discussed the same with the dictator. I agree with the dictator's note. Any additional findings/opinions/ etc. will be noted. Patient Condition at Discharge: Stable Plan - Discharge Summary New Discharge Prescriptions: New Cefuroxime Axetil [Ceftin] 500 mg PO BID #20 tab Pantoprazole [Protonix] 40 mg PO DAILY tab Thiamine [Vitamin B-1] 100 mg PO DAILY #1 tablet Folic Acid 1 mg PO DAILY #30 tablet Multivitamins, Thera [Multivitamin (formulary)] 1 tab PO DAILY #1 tablet levETIRAcetam [Keppra] 500 mg PO Q12HR tab Naproxen [Naprosyn] 500 mg PO Q12HR #30 tab Continue Pregabalin [Lyrica] 150 mg PO TID Ipratropium [place] [Atrovent Hfa] 2 puff INHALATION RT-QID Albuterol Sulfate [Ventolin HFA] 1 - 2 puff INHALATION RT-Q4H PRN PRN Reason: Shortness Of Breath Loratadine [Claritin] 10 mg PO DAILY Fenofibrate [Lofibra] 160 mg PO DAILY Discontinued Venlafaxine HCl ER [Effexor XR] 75 mg PO DAILY Temazepam [Restoril] 15 mg PO HS ALPRAZolam [Xanax] 2 mg PO TID PRN PRN Reason: Anxiety Discharge Medication List Albuterol Sulfate [Ventolin HFA] 1 - 2 puff INHALATION RT-Q4H PRN 02/26/17 [ History] Ipratropium [place] [Atrovent Hfa] 2 puff INHALATION RT-QID 02/26/17 [History] Pregabalin [Lyrica] 150 mg PO TID 02/26/17 [History] Fenofibrate [Lofibra] 160 mg PO DAILY 03/28/17 [History] Loratadine [Claritin] 10 mg PO DAILY 03/28/17 [History] Cefuroxime Axetil [Ceftin] 500 mg PO BID #20 tab 03/31/17 [Rx] Folic Acid 1 mg PO DAILY #30 tablet 03/31/17 [Rx] Multivitamins, Thera [Multivitamin (formulary)] 1 tab PO DAILY #1 tablet [Rx] Pantoprazole [Protonix] 40 mg PO DAILY tab 03/31/17 [Rx] Thiamine [Vitamin B-1] 100 mg PO DAILY #1 tablet 03/31/17 [Rx] Naproxen [Naprosyn] 500 mg PO Q12HR #30 tab 04/03/17 [Rx] levETIRAcetam [Keppra] 500 mg PO Q12HR tab 04/03/17 [Rx] Follow up Appointment(s)/Referral(s): Neurology, DrDenilson [Other] - 1 Week Madiha Mccullough MD [REFERRING] - 3 Days (after DC from [facility]) Ewa Iglesias MD [Medical Doctor] - 03/31/17 Activity/Diet/Wound Care/Special Instructions: Lexapro on hold until delirium resolves as per psychiatry, Effexor as per psychiatry cbc,bmp in am Once subacute rehab completed, patient will need referrals for outpatient substance abuse treatment. Discharge Disposition: TRANSFER TO SNF/ECF
--- NOTE | 2017-04-03 16:49 | P.PN ---
Subjective Date of service 03/31/2017. Progress note being dictated for Dr. Aviles Interval history: This is a 51-year-old female is admitted for fever, sepsis possible source being urinary tract infection, in a patient with history of polysubstance abuse. Evaluated by psychiatry, medication regimen adjusted. Evaluated by and received antibiotics as per infectious disease. Evaluated by psychiatry with recommendations noted. Significant clinical improvement. Evaluated by physical therapy and subacute rehab recommended. Maintained on Rocephin. Afebrile. Denies chest pain, palpitations or increasing shortness of breath. Occasional nonproductive cough. Diet intake improving, no nausea vomiting or diarrhea. Denies abdominal pain. 04/01/2017 continues to have significant clinical improvement compared to even yesterday. Maintained on antibiotics. Afebrile. Potassium supplemented, currently at 3.7. Denies chest pain, palpitations or increasing shortness of breath. 04/02/2017 complaining of generalized discomfort from "head to toe", Potassium being supplemented. Denies chest pain, palpitations or increasing shortness of breath. 04/03/2017 yesterday tramadol added for pain control. Last night became unresponsive lasting for a couple minutes followed by starring, shaking head yes and no, then resulted to "word salad". this morning staff heard muffled scream, upon evaluation patient's eyes rolled back and arms stiff. Ativan, Keppra ordered. Tramadol discontinued. No further seizure activity. Head CT ordered, reporting nonacute, chronic small vessel ischemic change. EEG performed, results pending. Objective - Vital Signs Vital signs: Vital Signs Temp 97.9 F 04/03/17 15:00 Pulse 92 04/03/17 15:00 Resp 32 H 04/03/17 15:00 BP 148/89 04/03/17 15:00 Pulse Ox 98 04/03/17 15:00 Intake & Output 04/02/17 04/03/17 04/03/17 18:59 06:59 18:59 Intake Total 600 Balance 600 Weight 58.967 kg Intake: Intake, IV Titration 200 Amount Potassium Chloride 10 meq 100 Lidocaine 2% Inj 10 mg In Sodium Chloride 0.9% 100 ml @ 100 mls/hr IV Q1HR [facility] [place] Rx#:[id number] Potassium Chloride 10 meq 100 Lidocaine 2% Inj 10 mg In Sodium Chloride 0.9% 100 ml @ 100 mls/hr IV Q1HR [facility] [place] Rx#:[id number] Oral 400 Other: Voiding Method Bedside Commode Bedside Commode Bedside Commode Diaper Diaper Diaper # Voids 1 3 2 # Bowel Movements 1 - Exam GENERAL: The patient is alert and oriented x2, not in any acute distress. Well developed, well nourished. HEENT: Pupils are round and equally reacting to light. EOMI. No scleral icterus. No conjunctival pallor. Normocephalic, atraumatic. No pharyngeal erythema. No thyromegaly. CARDIOVASCULAR: S1 and S2 present. No murmurs, rubs, or gallops. PULMONARY: Chest is clear to auscultation, no wheezing or crackles. ABDOMEN: Soft, nontender, nondistended, normoactive bowel sounds. No palpable organomegaly. MUSCULOSKELETAL: No joint swelling or deformity. EXTREMITIES: No cyanosis, clubbing, or pedal edema. NEUROLOGICAL: Gross neurological examination did not reveal any focal deficits. Conversing appropriately, strength and sensation grossly intact. SKIN: No rashes. - Labs CBC & Chem 7: 04/03/17 04:10 04/03/17 09:10 Labs: Abnormal Lab Results - Last 24 Hours (Table) 04/02/17 04/03/17 04/03/17 Range/Units 22:25 01:31 04:10 Potassium 3.2 L (3.5-5.1) mmol/L BUN 2 L (7-17) mg/dL Creatinine 0.50 L (0.52-1.04) mg/dL Glucose 103 H (74-99) mg/dL POC Glucose (mg/dL) 143 H (75-99) mg/dL Magnesium (1.6-2.3) mg/dL 04/03/17 04/03/17 Range/Units 08:26 09:10 Potassium (3.5-5.1) mmol/L BUN (7-17) mg/dL Creatinine (0.52-1.04) mg/dL Glucose (74-99) mg/dL POC Glucose (mg/dL) 106 H (75-99) mg/dL Magnesium 1.3 L (1.6-2.3) mg/dL Microbiology - Last 24 Hours (Table) 03/29/17 13:54 Blood Culture - Preliminary Blood No Growth after 120 hours Assessment and Plan Plan: #1 sepsis: Source of sepsis is not clear may be related to pyelonephritis or urinary tract infection. #2 possible toxic encephalopathy from sepsis and overuse of medications, improving 3 hyponatremia: Hypovolemic hyponatremia . Improved with half normal saline 4 polysubstance abuse in the past and present #5 severe depression: Psychiatry on consult as all her symptoms of presentation appears to be related to severe depression. #6 tramadol induced seizures, EEG completed, Keppra initiated, further neuro workup outpatient Plan: Continue on current medication regime ,monitoring and symptomatic treatment. Ultram discontinued, naproxen added for pain relief. Keppra Initiated with seizure precautions. Antibiotics as per infectious disease. Discharge planning in progress for [facility] re[facility]. pending authorization. Further recommendations to follow. The impression and plan of care has been dictated as directed. : I performed a H&P examination of this patient and discussed the same with the dictator. I agree with the dictator's note. Any additional findings/opinions/ etc. will be noted.
--- NOTE | 2017-04-03 19:15 | P.CNNES ---
History of Present Illness Consult date: 04/03/17 Reason for Consult: This patient is being evaluated for new onset seizure and altered mentation History of Present Illness: This patient is a 51-year-old right-handed white female who was admitted to the [facility] back on 03/28/2017 for fever and sepsis. She was found to have evidence suggesting possibility of pyelonephritis. She was started on IV Rocephin. She also has a history of polysubstance abuse and has been evaluated by psychiatry. Psychiatry is started her on Risperdal as well as Lexapro. Parent lead today she was noted to have had a small seizure. Patient is unaware of this event. Voiding to the nursing staff is lasted only a few minutes and her eyes rolled back and she was shaky. The patient was sent for a computed tomography scan of the brain. CAT scan of the brain revealed age -related atrophy and chronic small vessel ischemic changes. No evidence of acute stroke or hemorrhage. Apparently 2 days prior to this seizure event she was started on Ultram. This was also discontinued today. She is being evaluated for possible transfer to a subacute rehab center possibly tomorrow. Patient was somewhat lethargic on initial admission. Today she is much more awake and alert. She is able to answer all simple questions but some what confused. She appears to be slightly encephalopathic. Patient is being treated for underlying pyelonephritis. Infectious disease is following her for this. Patient underwent routine EEG after this seizure event this morning. EEG reveals moderate to severe slowing with no epileptiform discharges. This EEG is consistent with a diffuse encephalopathy. Patient is resting comfortably now. She has had no further seizure events. Neurology is now been consulted for further evaluation and recommendations. Review of Systems Neurological: Reports change in mentation, Reports convulsions, Reports memory loss, Reports numbness, Reports tremors, Reports weakness Psychiatric: Reports depression, Reports memory loss Past Medical History Past Medical History: Unable to Obtain Additional Past Medical History / Comment(s): Bronchitis, UTI, arthritis multiple joints, back pain, current L breast wound with I&D and pt states recently reopened. History of Any Multi-Drug Resistant Organisms: Unobtainable Past Surgical History: Hysterectomy Additional Past Surgical History / Comment(s): L breast I&D Past Anesthesia/Blood Transfusion Reactions: No Reported Reaction, Motion Sickness Past Psychological History: Unable to Obtain Smoking Status: Current every day smoker Past Alcohol Use History: Daily Past Drug Use History: Prescription Drug Abuse - Past Family History Father Family Medical History: Congestive Heart Failure (CHF) Additional Family Medical History / Comment(s): Father of CHF at the age of 75 yrs. Mother Family Medical History: Cancer Additional Family Medical History / Comment(s): Mother of lung cancer at the age of 68yrs. She was a heavy smoker. Medications and Allergies Home Medications Medication Instructions Recorded Confirmed Type Albuterol Sulfate [Ventolin HFA] 1 - 2 puff INHALATION RT-Q4H PRN 02/26/1703/28 History Ipratropium [place] [Atrovent Hfa] 2 puff INHALATION RT-QID 02/26/17 03/28/17 History Fenofibrate [Lofibra] 160 mg PO DAILY 03/28/17 03/28/17 History Loratadine [Claritin] 10 mg PO DAILY 03/28/17 03/28/17 History Allergies Allergy/AdvReac Type Severity Reaction Status Date / Time aspirin Allergy Unknown Verified 03/28/17 18:28 Physical Examination - Vital Signs Vital Signs: Vital Signs Temp Pulse Resp BP Pulse Ox 04/03/17 16:00 92 32 H 04/03/17 15:00 97.9 F 92 32 H 148/89 98 04/03/17 08:00 92 32 H 04/03/17 07:00 98.3 F 94 18 140/94 97 04/02/17 21:40 98.5 F 90 16 158/89 95 Intake and Output 04/03/17 04/03/17 04/03/17 06:59 14:59 22:59 Intake Total 600 Balance 600 Intake: Intake, IV Titration 200 Amount Potassium Chloride 10 meq 100 Lidocaine 2% Inj 10 mg In Sodium Chloride 0.9% 100 ml @ 100 mls/hr IV Q1HR [facility] Rx#:[id number] Potassium Chloride 10 meq 100 Lidocaine 2% Inj 10 mg In Sodium Chloride 0.9% 100 ml @ 100 mls/hr IV Q1HR [facility] Rx#:[id number] Oral 400 Other: Voiding Method Bedside Commode Bedside Commode Bedside Commode Diaper Diaper Diaper # Voids 3 2 # Bowel Movements 1 Weight 58.967 kg Patient Weight 04/04/17 06:59 Weight 58.967 kg - Constitutional General appearance: average body habitus, cooperative - EENT EENT: PERRL, mucous membranes moist - Respiratory Respiratory: lungs clear, normal breath sounds - Cardiovascular Cardiovascular: regular rate, normal S1, normal S2 Extremities: no peripheral edema bilaterally - Gastrointestinal Gastrointestinal: normoactive bowel sounds - Integumentary Integumentary: normal - Neurologic Cranial nerve examination: PERRL, EOMI, VFF, V1/V2/V3 grossly intact, face symmetric, tongue midline, intact gag reflex, intact corneal reflex, normal palatal elevation Speech examination: intact Sensorimotor examination: intact Motor examination - right side: 35: biceps, triceps, wrist flexion, wrist extension, tax accountant, hip flexors, knee extensors, dorsiflexion, toe extension (EHL) , plantarflexion Motor examination - left side: 35: biceps, triceps, wrist flexion, wrist extension, tax accountant, hip flexors, knee extensors, dorsiflexion, toe extension (EHL) , plantarflexion Detailed sensory examination: intact Reflex and gait examination: intact Reflexes: 1+: ankle, bicep, knee, tricep - Musculoskeletal Musculoskeletal: no pain - Psychiatric Psychiatric: mood/affect appropriate, cooperative Results - Laboratory Findings CBC and BMP: 04/03/17 04:10 04/03/17 09:10 Abnormal Lab Findings: Abnormal Labs 03/28/17 03/28/17 03/28/17 18:18 18:18 18:18 WBC 12.5 H Neutrophils # 9.3 H PT INR Sodium 150 H Potassium 3.3 L Chloride 112 H Carbon Dioxide 21 L BUN 20 H Creatinine Glucose 117 H POC Glucose (mg/dL) Calcium 10.3 H Magnesium Total Creatine Kinase 245 H Urine Protein Urine Ketones Urine Bilirubin Urine Mucus Urine Methadone Screen U Benzodiazepines Scrn U Marijuana (THC) Screen 03/28/17 03/28/17 03/29/17 18:18 18:30 07:35 WBC Neutrophils # 8.0 H PT 12.3 H INR 1.2 H Sodium Potassium Chloride Carbon Dioxide BUN Creatinine Glucose POC Glucose (mg/dL) Calcium Magnesium Total Creatine Kinase Urine Protein 1+ H Urine Ketones 1+ H Urine Bilirubin 1+ H Urine Mucus Rare H Urine Methadone Screen Detected H U Benzodiazepines Scrn Detected H U Marijuana (THC) Screen Detected H 03/29/17 03/29/17 03/29/17 07:35 13:54 16:30 WBC Neutrophils # PT INR Sodium 150 H Potassium 3.0 L* 3.3 L Chloride 117 H Carbon Dioxide 21 L BUN Creatinine Glucose 128 H POC Glucose (mg/dL) Calcium Magnesium Total Creatine Kinase Urine Protein Trace H Urine Ketones 1+ H Urine Bilirubin Urine Mucus Urine Methadone Screen U Benzodiazepines Scrn U Marijuana (THC) Screen 03/30/17 03/30/17 03/30/17 07:04 07:04 17:41 WBC 12.3 H Neutrophils # PT INR Sodium 147 H Potassium 3.1 L 3.0 L* Chloride 113 H Carbon Dioxide BUN Creatinine 0.50 L Glucose 136 H POC Glucose (mg/dL) Calcium Magnesium Total Creatine Kinase Urine Protein Urine Ketones Urine Bilirubin Urine Mucus Urine Methadone Screen U Benzodiazepines Scrn U Marijuana (THC) Screen 03/31/17 03/31/17 03/31/17 03:07 07:38 07:38 WBC 15.3 H Neutrophils # PT INR Sodium Potassium 2.8 L* 3.1 L Chloride 110 H Carbon Dioxide BUN 4 L Creatinine Glucose 118 H POC Glucose (mg/dL) Calcium Magnesium Total Creatine Kinase Urine Protein Urine Ketones Urine Bilirubin Urine Mucus Urine Methadone Screen U Benzodiazepines Scrn U Marijuana (THC) Screen 03/31/17 03/31/17 04/01/17 10:03 19:54 03:05 WBC Neutrophils # PT INR Sodium Potassium 3.2 L 2.9 L* 3.3 L Chloride Carbon Dioxide BUN Creatinine Glucose POC Glucose (mg/dL) Calcium Magnesium Total Creatine Kinase Urine Protein Urine Ketones Urine Bilirubin Urine Mucus Urine Methadone Screen U Benzodiazepines Scrn U Marijuana (THC) Screen 04/01/17 04/02/17 04/02/17 11:36 07:15 13:54 WBC Neutrophils # PT INR Sodium Potassium 3.3 L 3.2 L 3.4 L Chloride Carbon Dioxide BUN Creatinine Glucose POC Glucose (mg/dL) Calcium Magnesium Total Creatine Kinase Urine Protein Urine Ketones Urine Bilirubin Urine Mucus Urine Methadone Screen U Benzodiazepines Scrn U Marijuana (THC) Screen 04/02/17 04/03/17 04/03/17 22:25 01:31 04:10 WBC Neutrophils # PT INR Sodium Potassium 3.2 L Chloride Carbon Dioxide BUN 2 L Creatinine 0.50 L Glucose 103 H POC Glucose (mg/dL) 143 H Calcium Magnesium Total Creatine Kinase Urine Protein Urine Ketones Urine Bilirubin Urine Mucus Urine Methadone Screen U Benzodiazepines Scrn U Marijuana (THC) Screen 04/03/17 04/03/17 08:26 09:10 WBC Neutrophils # PT INR Sodium Potassium Chloride Carbon Dioxide BUN Creatinine Glucose POC Glucose (mg/dL) 106 H Calcium Magnesium 1.3 L Total Creatine Kinase Urine Protein Urine Ketones Urine Bilirubin Urine Mucus Urine Methadone Screen U Benzodiazepines Scrn U Marijuana (THC) Screen Assessment and Plan (1) New onset seizure Status: Acute Code(s): R56.9 - UNSPECIFIED CONVULSIONS (2) Delirium Status: Acute Code(s): R41.0 - DISORIENTATION, UNSPECIFIED (3) Drug withdrawal Status: Acute Code(s): F19.939 - OTHER PSYCHOACTIVE SUBSTANCE USE, UNSP WITH WITHDRAWAL, UNSP (4) Hypernatremia Status: Acute Code(s): E87.0 - HYPEROSMOLALITY AND HYPERNATREMIA (5) Polysubstance abuse Status: Acute Code(s): F19.10 - OTHER PSYCHOACTIVE SUBSTANCE ABUSE, UNCOMPLICATED Plan: This patient's pediatrics 1-year-old female initially admitted to hospital with episode of severe obtundation and altered mental status. She was showing good improvement over the last few days. She has been seen by psychiatry who was treating her for delirium. She was started on Risperdal as well as Lexapro. She was also given Ultram 2 days ago. All of these medications were discontinued today. Patient had a witnessed seizure that lasted only a few minutes in duration. She was sent for computed tomography scan of the brain which was negative for any acute changes. She also underwent routine EEG today which is diffusely slow consistent with a metabolic encephalopathy. Her polysubstance abuse and other medical conditions are multifactorial and producing her obtundation. We would agree to hold all of her current psychiatric medications and will await further recommendations from psychiatry. Her overall prognosis at this time remains very guarded. She is being evaluated for possible transfer to subacute rehab possibly tomorrow. Her overall prognosis at this time remains guarded. Time with Patient: Greater than 30
[2017-04-03] MEDS: levETIRAcetam 500 MG TAB PO SCH (21:18)
[2017-04-04] MEDS: DEXTROSE 5%-0.45% NACL 1,000 ML IV SCH (07:07)
[2017-04-04] MEDS: cefTRIAXone 2,000 MG in SODIUM CHLORIDE 0.9% 100 ML IVPB SCH (07:32)
[2017-04-04 08:31] VITALS: BP 143/87; TEMP 97.8
[2017-04-04 08:33] VITALS: PULSE 92; RESP 18
[2017-04-04] MEDS: ESOMEPRAZOLE 20 MG in SODIUM CHLORIDE 0.9% 50 ML IVPB SCH (11:25)
[2017-04-04] MEDS: THIAMINE 100 MG/ML 2 ML VIAL IVP SCH (11:26)
[2017-04-04] MEDS: levETIRAcetam 500 MG TAB PO SCH (11:26)
--- NOTE | 2017-04-04 12:25 | P.DS ---
Providers Date of admission: 03/28/17 20:35 Attending physician: Lavern Wilkins Consults: 03/29/17 12:47 Consult Physician Routine Consulting Provider: Ewa Iglesias Consult Reason/Comments: AMS Do you want consulting provider notified?: Yes 03/29/17 13:36 Consult Physician Routine Consulting Provider: Luci Valles Consult Reason/Comments: high temps Do you want consulting provider notified?: Already Contacted 04/03/17 09:52 Consult Physician Routine Consulting Provider: Cecelia Trevizo Consult Reason/Comments: Seizure Do you want consulting provider notified?: Already Contacted Primary care physician: Physician Nonstaff Hospital Course: Patient ended up staying in the hospital because of transportation issues because of which I evaluated the patient today. template for further details of discharge please refer to the discharge summary from yesterday. PHYSICAL EXAMINATION: GENERAL: The patient is alert and oriented x3, not in any acute distress. Well developed, well nourished. HEENT: Pupils are round and equally reacting to light. EOMI. No scleral icterus. No conjunctival pallor. Normocephalic, atraumatic. No pharyngeal erythema. No thyromegaly. CARDIOVASCULAR: S1 and S2 present. No murmurs, rubs, or gallops. PULMONARY: Chest is clear to auscultation, no wheezing or crackles. ABDOMEN: Soft, nontender, nondistended, normoactive bowel sounds. No palpable organomegaly. MUSCULOSKELETAL: No joint swelling or deformity. EXTREMITIES: No cyanosis, clubbing, or pedal edema. NEUROLOGICAL: Gross neurological examination did not reveal any focal deficits. SKIN: No rashes. Patient Condition at Discharge: Stable Plan - Discharge Summary New Discharge Prescriptions: New Cefuroxime Axetil [Ceftin] 500 mg PO BID #20 tab Pantoprazole [Protonix] 40 mg PO DAILY tab Thiamine [Vitamin B-1] 100 mg PO DAILY #1 tablet Folic Acid 1 mg PO DAILY #30 tablet Multivitamins, Thera [Multivitamin (formulary)] 1 tab PO DAILY #1 tablet levETIRAcetam [Keppra] 500 mg PO Q12HR tab Naproxen [Naprosyn] 500 mg PO Q12HR #30 tab Continue Ipratropium [place] [Atrovent Hfa] 2 puff INHALATION RT-QID Albuterol Sulfate [Ventolin HFA] 1 - 2 puff INHALATION RT-Q4H PRN PRN Reason: Shortness Of Breath Loratadine [Claritin] 10 mg PO DAILY Fenofibrate [Lofibra] 160 mg PO DAILY Discontinued Venlafaxine HCl ER [Effexor XR] 75 mg PO DAILY Temazepam [Restoril] 15 mg PO HS ALPRAZolam [Xanax] 2 mg PO TID PRN PRN Reason: Anxiety Discharge Medication List Albuterol Sulfate [Ventolin HFA] 1 - 2 puff INHALATION RT-Q4H PRN 02/26/17 [ History] Ipratropium [place] [Atrovent Hfa] 2 puff INHALATION RT-QID 02/26/17 [History] Fenofibrate [Lofibra] 160 mg PO DAILY 03/28/17 [History] Loratadine [Claritin] 10 mg PO DAILY 03/28/17 [History] Cefuroxime Axetil [Ceftin] 500 mg PO BID #20 tab 03/31/17 [Rx] Folic Acid 1 mg PO DAILY #30 tablet 03/31/17 [Rx] Multivitamins, Thera [Multivitamin (formulary)] 1 tab PO DAILY #1 tablet [Rx] Pantoprazole [Protonix] 40 mg PO DAILY tab 03/31/17 [Rx] Thiamine [Vitamin B-1] 100 mg PO DAILY #1 tablet 03/31/17 [Rx] Naproxen [Naprosyn] 500 mg PO Q12HR #30 tab 04/03/17 [Rx] levETIRAcetam [Keppra] 500 mg PO Q12HR tab 04/03/17 [Rx] Follow up Appointment(s)/Referral(s): Neurology, DrDenilson [Other] - 1 Week Madiha Mccullough MD [REFERRING] - 3 Days (after DC from [facility]) Ewa Iglesias MD [Medical Doctor] - 03/31/17 Patient Instructions/Handouts: Hypernatremia (DC) Activity/Diet/Wound Care/Special Instructions: Lexapro on hold until delirium resolves as per psychiatry, Effexor as per psychiatry. Seizure precautions. cbc,bmp in am Once subacute rehab completed, patient will need referrals for outpatient substance abuse treatment. Discharge Disposition: TRANSFER TO SNF/ECF
--- NOTE | 2017-04-05 09:41 | EEG ---
DATE OF EE04/03/2017 REFERRING PHYSICIAN: Dr. Monk INTERPRETING PHYSICIAN: Dr. Cecelia Trevizo ELECTROENCEPHALOGRAPHIC EXAMINATION REPORT: INDICATIONS FOR EXAMINATION: This patient is an 51-year-old female being evaluated for new onset seizure. AGE: 51 EEG FINDINGS: A routine 21-channel, awake digital EEG recording was accomplished utilizing the 10-20 International System with bipolar and referential montages. The background activity in the most alert, resting state consists of a low to medium amplitude, poorly developed and poorly sustained 6 Hz activity over the posterior head regions. This posterior rhythm attenuates to eye opening. There is a small amount of low amplitude 18-20 Hz beta activity seen maximally over the anterior head regions. Muscle and movement artifact was observed on a few occasions during the tracing. Hyperventilation was not performed. Photic stimulation at flash frequencies of 2 to 30 Hz produced a minimal occipital driving response. No epileptiform discharges were seen. IMPRESSION: This EEG is moderately abnormal in diffuse fashion due to slowing of the EEG background. The EEG failed to reveal any focal, lateralized, or epileptiform abnormalities. Clinical correlation is recommended. MTDD
== END 2017-04-04 12:25 | DRG 871 ==
LOC: EC 17:41 → 5MS5E 20:35
PROVIDERS: ADMIT Internal Medicine; ATTEND Internal Medicine
DX: A41.9 Sepsis, unspecified organism (principal); G92 Toxic encephalopathy; F10.231 Alcohol dependence with withdrawal delirium; E87.0 Hyperosmolality and hypernatremia; N12 Tubulo-interstitial nephritis, not specified as acute or chronic; F13.231 Sedative, hypnotic or anxiolytic dependence with withdrawal delirium; F19.239 Other psychoactive substance dependence with withdrawal, unspecified; R56.9 Unspecified convulsions; E86.0 Dehydration; E86.1 Hypovolemia; G89.29 Other chronic pain; M19.90 Unspecified osteoarthritis, unspecified site; F41.9 Anxiety disorder, unspecified; I49.9 Cardiac arrhythmia, unspecified; R11.0 Nausea; R10.9 Unspecified abdominal pain; R07.9 Chest pain, unspecified; R05 Cough; M54.9 Dorsalgia, unspecified; G57.91 Unspecified mononeuropathy of right lower limb; T40.4X5A Adverse effect of other synthetic narcotics, initial encounter; F32.9 Major depressive disorder, single episode, unspecified; R29.704 NIHSS score 4; F17.200 Nicotine dependence, unspecified, uncomplicated; Z80.1 Family history of malignant neoplasm of trachea, bronchus and lung; Z82.49 Family history of ischemic heart disease and other diseases of the circulatory system; Z79.899 Other long term (current) drug therapy; Z79.891 Long term (current) use of opiate analgesic; Z71.3 Dietary counseling and surveillance; Z90.710 Acquired absence of both cervix and uterus; Z87.440 Personal history of urinary (tract) infections; Z86.19 Personal history of other infectious and parasitic diseases; Z87.09 Personal history of other diseases of the respiratory system; Z87.828 Personal history of other (healed) physical injury and trauma; Z88.6 Allergy status to analgesic agent; Z88.5 Allergy status to narcotic agent
CPT/HCPCS: 36415; 51701; 70450; 71010; 74176; 80048; 80053; 80074; 80306; 81001; 81003; 82140; 82550; 82553; 83605; 83735; 84132; 84484; 85025; 85027; 85610; 85730; 87040; 87086; 93005; 94640; 94760; 95816; 96374; 99285

== ENCOUNTER 2025-01-11 11:21 | Day surgery (SDC) | payer OTHER ==
[~2025-01-11 11:21] MED LIST: LACTATED RINGERS 1,000 ML IV SCH
[2025-01-11] MEDS: MIDAZOLAM 2 MG/2 ML VIAL IV ONE (12:05)
[2025-01-11 12:11] VITALS: TEMP 97.5
[2025-01-11] MEDS: IV FLUID CONTINUATION 1,000 ML IV ONE (12:11)
[2025-01-11] MEDS ORDERED: LIDOCAINE 1% INJ 10MG/ML (20 ML MDV) ONE (12:33)
[2025-01-11] MEDS ORDERED: PROPOFOL 10 MG/ML 20 ML VIAL IV ONE (12:33)
--- NOTE | 2025-01-11 12:54 | P.PCN ---
Date of Procedure: 01/11/25 Procedure(s) Performed: Brief history: Patient is a pleasant 59-year-old white female scheduled for an elective upper endoscopy as well as colonoscopy as a part of evaluation of abdominal pain and change in bowel habits for the last 30 years duration. Her symptoms are progressively getting worse lately. Procedure performed: Esophagogastroduodenoscopy with biopsy Colonoscopy with random biopsy Preoperative diagnosis: Diffuse abdominal pain Change in bowel habits Anesthesia: MAC Procedure: After informed consent was obtained from the patient was brought into the endoscopy unit and IV sedation was administered by anesthesia under continuous monitoring. Initially upper endoscopy was done. The Olympus GF 160 video endoscope was inserted inserted into the mouth and esophagus intubated without any difficulty and was gradually advanced into the stomach and duodenum and carefully examined. The bulb and second part of the duodenum appeared normal. Biopsies were done from the duodenum rule out celiac disease. The scope was then withdrawn into the stomach adequately insufflated with air and upon careful examination the antrum had erosive gastritis and biopsies were done from this area. Mucosa of the body, cardia and fundus appeared normal. The scope was then withdrawn into the esophagus. The GE junction was located at 40 cm to the incisors. It appeared regular with no erythema erosions or ulcerations. Biopsies were done from the distal esophagus. Rest of the esophagus appeared normal. Patient tolerated the procedure well. At this time the patient continued to remain sedation. Initial digital rectal examination was normal. Olympus CF 160 video colonoscope was then inserted into the rectum and gradually advanced to the cecum without any difficulty. Careful examination was performed as the scope was gradually being withdrawn. The prep was excellent. The cecum, ascending colon, transverse colon, descending colon, sigmoid colon and rectum appeared normal. Random biopsies were done from ascending and descending colon rule out microscopic/collagenous colitis. Ret roflexion was performed in the rectum and no lesions were noted. Patient tolerated the procedure well. Impression: 1. Upper endoscopy revealed antral erosive gastritis 2. Colonoscopy was within normal limits with no evidence of colorectal neoplasia Recommendations: Findings of this examination were discussed with the patient as well as her family. She was advised to follow-up with the biopsy results follow-up in the office in 2 weeks. Recommended repeat screening colonoscopy in 10 years
[2025-01-11 13:28] VITALS: BP 137/83; PULSE 89; RESP 18
== END 2025-01-11 13:56 | disposition home or self-care (01) ==
LOC: ORWHC2ENDO 11:21
PROVIDERS: ATTEND Internal Medicine Gastroenterology
DX: K29.50 Unspecified chronic gastritis without bleeding (principal); K21.00 Gastro-esophageal reflux disease with esophagitis, without bleeding; R19.4 Change in bowel habit; K29.60 Other gastritis without bleeding
CPT/HCPCS: 88305; 45380; 43239; J2250; J2003; J2704

== ENCOUNTER → 2025-03-23 | Outpatient (CLI) | payer OTHER ==
--- NOTE | 2025-03-23 17:41 | XR ---
EXAMINATION TYPE: XR abdomen complete w decub DATE OF EXAM: 03/23/2025 4:46 PM INDICATION: Patient age:Female; 59 years old; Reason for study: R19.4 CHANGE IN BOWEL HABIT; PH[facility]. COMPARISON: CT abdomen pelvis 03/29/2017 TECHNIQUE: Upright, supine, and left lateral decubitus views of the abdomen were obtained. FINDINGS: Small bowel demonstrates no evidence for dilatation or air fluid levels. Gas and fecal material is seen in non-distended colon. No convincing evidence for pneumoperitoneum. Left-sided pelvic phleboliths. The lung bases are clear. The osseous structures are intact. IMPRESSION: Overall nonobstructive bowel gas pattern. [facility], , 03/23/2025 5:39 PM
== END | disposition home or self-care (01) ==
LOC: RADXRMAIN 16:08
PROVIDERS: ATTEND Nurse Practitioner Family
DX: R19.4 Change in bowel habit (principal)
CPT/HCPCS: 74021